=== PATIENT | male | born 1970 | race Caucasian/White ===

== ENCOUNTER 2023-01-24 18:21 | Inpatient (IN) ==
[2023-01-24] MEDS ORDERED: LORazepam 2 MG/1 ML VIAL IV STA ×2 (18:48→19:19)
[2023-01-24] MEDS ORDERED: SODIUM CHLORIDE 0.9% 1000ML 1,000 ML IV ONE (18:48)
[2023-01-24] MEDS ORDERED: dilTIAZem HCl 5 MG/ML 5 ML VIAL IV STA ×2 (19:08→19:19)
[2023-01-24 19:09] LABS: Basophils # (auto) 0.09 K/uL (0-0.2); Basophils % (auto) 0.7 %; Eosinophils # (auto) 0.28 K/uL (0-0.50); Eosinophils % (auto) 2.3 %; Hemoglobin 16.9 g/dl (14.0-18.0); Immature Granulocytes # (auto) 0.12 K/uL (0.01-0.20); Lymphocytes # (auto) 1.68 K/uL (1.2-3.4); Lymphocytes % (auto) 13.9 %; Mean Corpuscular Hemoglobin 33.2 pg (25.0-34.0); Mean Corpuscular Hgb Conc 35.2 g/dL (32.0-36.0); Mean Corpuscular Volume 94.3 fL (80.0-100.0); Monocytes # (auto) 1.33 K/uL (0.11-0.59); Neutrophils # (auto) 8.55 K/uL (1.40-6.50); Neutrophils % (auto) 71.1 %; Platelet Count 287 K/uL (130-400); RDW Coefficient of Variation 13.2 % (11.5-14.5); RDW Standard Deviation 45.2 fL (36.4-46.3); Red Blood Count 5.09 M/uL (4.70-6.10); White Blood Count 12.05 K/ul (4.8-10.8)
[2023-01-24] MEDS ORDERED: STAT IV Infusion **Titration per Protocol STA (19:22)
[2023-01-24 19:24] LABS: Alanine Aminotransferase 62 U/L (7-52); Albumin Level 4.3 gm/dl (3.4-5.0); Alkaline Phosphatase 86 U/L (34-104); Anion Gap 12 (3-11); Aspartate Aminotransferase 48 U/L (13-39); BUN Creatinine Ratio 14.4 (10-20); Bilirubin Direct 0.1 mg/dl (0-0.2); Bilirubin,Total 0.7 mg/dl (0.2-1.0); Blood Urea Nitrogen 14 mg/dl (6-23); Calcium 10.2 mg/dl (8.6-10.3); Carbon Dioxide 26 mmol/L (21-32); Chloride 96 mmol/L (98-107); Est GFR (African American) 103.6 ml/min; Est GFR (Non-African American) 89.4 ml/min; Glucose 99 mg/dl (70-99(Fasting)); Lipase 18 U/L (11-82); Magnesium 1.8 mg/dl (1.7-2.4); Potassium 3.5 mmol/L (3.5-5.1); Sodium 134 mmol/L (136-145); Total Protein 7.7 gm/dl (6.0-8.3)
[2023-01-24] MEDS ORDERED: METOPROLOL TARTRATE 1 MG/ML VIAL IV STA (19:29)
[2023-01-24 19:30] LABS: Troponin I High Sensitivity 34.7 pg/ml (0-20)
[2023-01-24 19:35] LABS: Prothrombin Time 10.8 Seconds (9.0-12.0)
--- NOTE | 2023-01-24 20:08 | CT Scan Report ---
HEAD CT NONCONTRAST CT DOSE: 703.85 mGy.cm HISTORY: dizziness TECHNIQUE: Multiaxial CT images of the head were performed without the use of intravenous contrast. A utomated exposure control was utilized for this study. A dose lowering technique was utilized adheri ng to the principles of ALARA. Comparison: None. Findings: Small retention cyst within the maxillary sinuses with mild mucosal thickening within the m axillary sinuses and ethmoid air cells. The mastoid air cells are clear. The calvarium and skull base are intact. The ventricles and sulci are within normal limits. There is no mass, hematoma, midline s hift, or acute infarct. Impression: No acute intracranial abnormality. ACT 112: Negative or not required by law. Electronically signed by: Iftikhar Ochoa M.D. 01/24/2023 8:06 PM
[2023-01-24] MEDS: dilTIAZem HCL 125 MG in DEXTROSE 5% 100 ML IV SCH (20:10)
--- NOTE | 2023-01-24 20:54 | XRay Report ---
XR chest 1V portable HISTORY: Atypical chest pain. COMPARISON: Chest 12/26/2015. FINDINGS: No pneumothorax. No pleural effusions. The lungs are clear. The cardiac silhouette is mildl y enlarged. No focal lung consolidations to suggest a pneumonia. No evidence for pulmonary edema. IMPRESSION: Mild cardiomegaly. Otherwise, no acute process within the chest. ACT 112: Negative or not required by law. Electronically signed by: Iftikhar Ochoa M.D. 01/24/2023 8:52 PM
--- NOTE | 2023-01-24 21:09 | History & Physical Report ---
Date of Service January 24, 2023 Assessment & Plan (1) Atrial flutter: Plan: 52yo male with a history of HTN, HLD, and alcohol use disorder presents with a three-day history of intermittent episodes of lightheadedness, sweating, back pain, headache, and SOB, found to be in atrial flutter on admission. Atrial flutter Patient with three-day history of intermittent episodes of lightheadedness, sweating, back pain, headache, and SOB Found to be in atrial flutter on admission with rates in the 130s Started on diltiazem gtt in ED BP stable; patient is without indication for cardioversion at this time Admit to PCU Echo ordered hsTroponin elevated to 34.7 - suspect demand ischemia - will trend per protocol - see below Holding home lisinopril/HCTZ Administered digoxin 250mcg IV (x1) Anticoagulation with heparin gtt for now; consider switching to DOAC in AM Electrolyte repletion to maintain K>4.0 and Mg>2.0 Elevated hsTroponin hsTroponin on admisison elevated to 34.7 Patient denies chest pain; no overt ischemic change on EKG Suspect secondary to demand ischemia Will trend per protocol Daily EKG, anticoagulation as above Alcohol use disorder AWSS protocol Banana bag, daily folate, thiamine Discuss possible naltrexone therapy prior to discharge HTN: hold home lisinopril/HCTZ, additional management noted above HLD: continue home crestor, hold home repatha Transaminitis: suspect hepatic steatosis 2/2 alcohol use disorder, no abdominal tenderness, no intervention indicated, trend CMP FEN: heart healthy diet, NSS@80mL/hr (x2 bags ordered) Code status: full code DVT ppx: heparin gtt Dispo: PCU (2) Alcohol use disorder: (3) Hypertension: (4) Hyperlipidemia: (5) Obesity: History of Present Illness Primary Care Provider: Srikanth Womack 52yo male with a history of HTN, HLD, and alcohol use disorder presents with a three-day history of intermittent episodes of lightheadedness, sweating, back pain, headache, and SOB. - has had symptomatic episodes once per day today and each of the last two days - lightheadedness, sweating, pain between shoulderblades, headache, SOB; symptoms worse with exertion; no over chest pain - each episode has spontaneously resolved after about an hour - no history of similar symptoms - feels "great' at the moment - reports drinking 15-20 beers daily, though after his symptomatic episode Friday (two days ago) only had three beers; had three yesterday and two today Patient denies fever, chills, vision changes, CP, abdominal pain, nausea, vomiting, dysuria, hematochezia, melena, numbness, or other symptoms. Denies recent illness and recent travel. Upon arrival, vitals were notable for elevated BP (140s/90s) and tachcardia (130s); no tachypnea, patient afebrile, spO2 adequate on room air. Initial labs were notable for elevated WBC (12.05), elevated AST (48), elevated ALT (62), and elevated hsTroponin (34.7); no anemia, platelets wnl, no electrolyte abnormalities, creatinine not elevated, Tbili not elevated, covid PCR negative. In the ED, patient was started on a diltiazem drip. EKG: atrial flutter, no overt ischemic change Imaging: CXR: mild cardiomegaly, no acute process CT head: no acute intracranial abnormality Surrogate decision-maker in case of an emergency: cammy Sofia (cell: [phone]) Allergies Allergy/AdvReac Type Severity Reaction Status Date / Time No Known Allergies Allergy Unverified 02/07/16 07:44 Home Medications Medication Instructions Recorded Confirmed Type evolocumab 420 mg/3.5 mL 420 mg subcut MONTHLY 01/24/23 01/24/23 History subcutaneous wearable injector (Repatha Pushtronex) lisinopril 20 1 tab PO DAILY 01/24/23 01/24/23 History mg-hydrochlorothiazide 25 mg tablet metoprolol succinate 25 mg 25 mg PO QPM 01/24/23 01/24/23 History tablet,extended release 24 hr rosuvastatin 40 mg tablet 40 mg PO QPM 01/24/23 01/24/23 History sertraline 50 mg tablet 50 mg PO QPM 01/24/23 01/24/23 History Past Med/Surg History Medical History (Updated 01/26/23 @ 13:28 by NORA Simmons) Alcohol use disorder Hyperlipidemia Hypertension No pertinent family history Surgical History No pertinent past surgical history Social History Smoking Status: Never smoker Second Hand Exposure: No; Do You Dip or Chew Tobacco: Yes; Hx Alcohol Use: Yes Alcohol type: beer Hx Substance Use: No Preferred Language: Maori Communication Ability: Effective Recruitment Advertising Manager Required: No Beliefs That Will Affect Care: None Current Living Situation: Spouse Other Information That Helps Us Care for You: No Feels Safe at Home: Yes Safety Concerns: Feels Safe At This Time Assistive Devices: Glasses Review of Systems Review of Systems: See HPI Physical Exam Physical Exam: Constitutional: well-appearing, no acute distress CV: tachycardic, rhythm regular, no murmur appreciated Resp: CTABL, no wheezes/rales/rhonchi appreciated, no increased work of breathing GI: soft, nontender MSK: no calf tenderness Skin: warm, dry, no rash appreciated Neuro: alert, oriented, no focal neurologic deficit appreciated Results & Data Results & Data Vital Signs (Past 12 Hours) Vital Signs Temp Pulse Pulse Resp BP BP Pulse Ox 01/24/23 20:30 135 H 18 111/82 92 01/24/23 19:32 135 H 103/72 01/24/23 18:55 140 H 01/24/23 18:51 96 01/24/23 18:25 36.6 C 139 H 24 147/93 H 93 O2 Del Method 01/24/23 20:30 Room Air 01/24/23 19:32 01/24/23 18:55 01/24/23 18:51 Room Air 01/24/23 18:25 Room Air Supervising Physician Co-Signing Physician Notes Attending addendum: I have physically seen this patient, have supervised the medical residents activities, and agree with the H&P unless as otherwise noted. Assessment and Plan: Atrial flutter/elevated troponin//hypertension- The patient will be admitted to telemetry for serial cardiac enzymes, serial EKG's, cardiac rhythm monitoring and a 2-D echocardiogram with Dopplers. Hold lisinopril/HCTZ Received diltiazem 20 mg IV push then 25 mg IV push from the ED with starting of diltiazem drip, which will be continued for now Outpatient on metoprolol succinate 25 mg every afternoon, we will continue for now Systolic blood pressure in the mid 90s, with heart rate in the 130s, will give digoxin 0.25 mg IV now and repeat in 3 hours if needed Start heparin drip Consult cardiology Alcohol abuse- AWSS protocol including thiamine, folate and Nephrocaps Discussed with patient direct toxic effect and indirect effect of alcohol affecting his heart function Hyperlipidemia- Continue Crestor On Repatha as outpatient Remaining orders and notations as noted Resident Activity Tracking Resident Involvement: Resident Care Provided Care Provided: Adult Hospital Medicine
[2023-01-24] MEDS ORDERED: MAGNESIUM OXIDE 400 MG TAB PO STA (21:35)
[2023-01-24] MEDS ORDERED: POTASSIUM CHLORIDE CRTAB 20 MEQ TABCR PO STA (21:35)
[2023-01-24] MEDS ORDERED: LORazepam 2 MG/1 ML VIAL IV PRN (21:36)
[2023-01-24] MEDS ORDERED: CEROVITE ADV FORMULA TAB PO STA (21:36)
[2023-01-24] MEDS ORDERED: ENOXAPARIN INJ 40 MG/0.4 ML SYR SQ SCH (21:45)
[2023-01-24] MEDS ORDERED: THIAMINE HCL 100 MG, FOLIC ACID 1 MG in SODIUM CHLORIDE 0.9% 1000ML 1,000 ML IV SCH (21:45)
[2023-01-24] MEDS: SODIUM CHLORIDE 0.9% 1000ML 1,000 ML IV SCH (22:14)
[2023-01-24] MEDS ORDERED: DIGOXIN 250 MCG in SYRINGE 9 ML IV ONE (22:15)
[2023-01-24] MEDS ORDERED: ENOXAPARIN 1 MG/KG SQ SCH (22:15)
[2023-01-24] MEDS ORDERED: Patient's HEIGHT &/or WEIGHT Needed STA (22:23)
--- NOTE | 2023-01-24 22:54 | Emergency Department Note ---
History of Present Illness General Chief complaint: Cardiac Assessment Stated complaint: NEAR SYNCOPE,REF BY DOC,HEART ISSUES,BLOCKED ATERY Time Seen by Provider: 01/24/23 18:34 History of Present Illness Provider complaint: Dizziness Onset (ago): day(s) 2 Maximum Pain Intensity: 2 52-year-old male presents emergency department for dizziness. Patient reports that for the last 2 days he has felt very dizzy like he is going to pass out. Patient denies any headache. No chest pain or difficulty breathing. No abdominal pain. No nausea vomiting or diarrhea. Patient does report he drinks 15-20 beers a day however the last 2 days he has only been drinking 3 beers a day. No falls. Home Medications Medication Instructions Recorded Confirmed Type evolocumab 420 mg/3.5 mL 420 mg subcut MONTHLY 01/24/23 01/24/23 History subcutaneous wearable injector (Repatha Pushtronex) lisinopril 20 1 tab PO DAILY 01/24/23 01/24/23 History mg-hydrochlorothiazide 25 mg tablet metoprolol succinate 25 mg 25 mg PO QPM 01/24/23 01/24/23 History tablet,extended release 24 hr rosuvastatin 40 mg tablet 40 mg PO QPM 01/24/23 01/24/23 History sertraline 50 mg tablet 50 mg PO QPM 01/24/23 01/24/23 History Allergies Allergy/AdvReac Type Severity Reaction Status Date / Time No Known Allergies Allergy Unverified 02/07/16 07:44 Past Med/Surg History Medical History Alcohol use disorder Hyperlipidemia Hypertension No pertinent family history Surgical History No pertinent past surgical history Social History Smoking Status: Never smoker Preferred Language: Moroccan Feels Safe at Home: Yes Physical Exam Vital Signs Vital Signs - 24 hr 01/24/23 18:25 01/24/23 18:51 01/24/23 18:55 Temperature 36.6 C Temperature Source Temporal Artery Scan Pulse Rate 139 H 140 H Pulse Rate [Apical] Pulse Rhythm [Apical] Respiratory Rate 24 Respiratory Effort / Characteristics Non-Labored Spontaneous Respiratory Depth Normal Respiratory Pattern Regular Blood Pressure 147/93 H Blood Pressure [Right Arm] Blood Pressure Mean 111 Blood Pressure Mean [Right Arm] Blood Pressure Position Sitting Blood Pressure Position [Right Arm] Pulse Oximetry 93 96 Oxygen Delivery Method Room Air Room Air Sepsis Recent Fever Within 48 Hours No Sepsis New/Unexplained Change in Mental Status N/A Sepsis Action Taken by Nursing No Action Required 01/24/23 19:32 01/24/23 20:30 01/24/23 21:11 Temperature Temperature Source Pulse Rate 135 H Pulse Rate [Apical] 135 H 134 H Pulse Rhythm [Apical] Regular Respiratory Rate 18 18 Respiratory Effort / Characteristics Non-Labored Spontaneous Non-Labored Spontaneous Respiratory Depth Normal Normal Respiratory Pattern Regular Regular Blood Pressure 103/72 Blood Pressure [Right Arm] 111/82 106/71 Blood Pressure Mean Blood Pressure Mean [Right Arm] 91 82 Blood Pressure Position Blood Pressure Position [Right Arm] Lying Lying Pulse Oximetry 92 95 Oxygen Delivery Method Room Air Room Air Sepsis Recent Fever Within 48 Hours Sepsis New/Unexplained Change in Mental Status Sepsis Action Taken by Nursing 01/24/23 22:51 Temperature Temperature Source Pulse Rate 134 H Pulse Rate [Apical] Pulse Rhythm [Apical] Respiratory Rate Respiratory Effort / Characteristics Respiratory Depth Respiratory Pattern Blood Pressure Blood Pressure [Right Arm] Blood Pressure Mean Blood Pressure Mean [Right Arm] Blood Pressure Position Blood Pressure Position [Right Arm] Pulse Oximetry Oxygen Delivery Method Sepsis Recent Fever Within 48 Hours Sepsis New/Unexplained Change in Mental Status Sepsis Action Taken by Nursing Physical Exam HENT: Exam performed. - Head: Normocephalic and atraumatic. - Right Ear: External ear normal. No mastoid erythema - Left Ear: External ear normal. No mastoid erythema EYES: Conjunctivae and EOM are normal. Right eye exhibits no discharge. Left eye exhibits no discharge. No scleral icterus. NECK: Normal range of motion. Neck supple. No JVD present. No spinous process tenderness present. No tracheal deviation and normal range of motion present. CV: Tachycardic rate, irregular rhythm, normal heart sounds and intact distal pulses. There is no peripheral edema. Palpable radial pulses bue. PULM/CHEST: Effort normal and breath sounds normal. No respiratory distress. No stridor. He has no wheezes. He has no rales. ABD: The abdomen is soft.There is no tenderness. There is no rebound, no guarding. NEURO: He is alert and oriented to person, place, and time. He has normal strength. No cranial nerve deficit or sensory deficit. Coordination and gait normal. GCS eye subscore is 4. GCS verbal subscore is 5. GCS motor subscore is 6. Cerebellar tests wnl. SKIN: Skin is warm and dry. He is not diaphoretic. PSYCH: He has a normal mood and affect. Behavior is normal. Judgment and thought content normal. Course Course 1833: The patient was evaluated in room B12B. A complete history and physical exam was performed Cardiac monitoring: An order was placed for continuous cardiac monitoring. The monitor shows a rate of atrial flutter with 135 rhythm interpreted by me Patient found to be in atrial flutter with a rate in the 130s. Large-bore IV access was obtained. Patient was given Cardizem 20 mg IV push which did not improve his heart rate. Ativan also ordered for the patient as well as IV fluids. Additional Cardizem 25 mg was ordered for the patient and again did not make any difference for patient's heart rate. An additional 2 mg of Ativan was ordered for the patient did not make any difference on the patient's heart rate. Patient's blood pressure remained stable metoprolol 5 mg IV push was ordered for the patient which did not improve the patient's heart rate. It is thought that the patient might be in holiday heart and the patient's heart rate may be due to his sudden cessation of alcohol usage. Patient will be started on Cardizem drip. 1943: Spoke with cardiology Dr. Escobedo collections associate [facility]. He agrees that the patient should be started on Cardizem drip. He advises against amiodarone at this time. He states his lungs patient's blood pressure is stable and as long as he is mentating well being keep the patient on the Cardizem drip. He states he will evaluate the patient and we will plan on admitting the patient for most likely atrial flutter secondary to alcohol withdrawal. 2049: Patient remains in atrial flutter with a rate in the 130s. He is alert and oriented x3 reporting no chest pain or difficulty breathing. Labs and imaging within normal limits. Patient will be admitted to the [facility] team Dr. Dukes notified. Administered Medications Diltiazem HCl 125 mg/ Dextrose 125 mls @ 15 mls/hr IV .[id number] [facility]; Protocol Stop: 02/23/23 19:29 Last Titration: 01/24/23 20:55 Dose: 15 mg/hr, 15 mls/hr Documented By: JENNIFER Co-signed By: CHELY Titration: 01/24/23 20:32 Dose: 10 mg/hr, 10 mls/hr Documented By: JENNIFER Co-signed By: regional intermodal truck driver: 01/24/23 20:10 Dose: 5 mg/hr, 5 mls/hr Documented By: JENNIFER Co-signed By: ALESSIO Thiamine HCl 100 mg/ Folic (Acid 1 mg/ Sodium Chloride) 1,001.2 mls @ 500 mls/hr IV .Q2H1M NIKKY; Protocol Stop: 01/24/23 23:45 Last Admin: 01/24/23 22:14 Dose: 500 mls/hr Documented By: JENNIFER Sodium Chloride (Nss 1000ml) 1,000 mls @ 80 mls/hr IV .[id number] NIKKY Stop: 01/25/23 22:44 Last Admin: 01/24/23 22:14 Dose: 80 mls/hr Documented By: JENNIFER Discontinued Medications Diltiazem HCl (Diltiazem Hcl 5 Mg/Ml 5 Ml Vial) 20 mg IV NOW STA Stop: 01/24/23 19:09 Last Admin: 01/24/23 19:12 Dose: 20 mg Documented By: JENNIFER Co-signed By: KAYLI Diltiazem HCl (Diltiazem Hcl 5 Mg/Ml 5 Ml Vial) 25 mg IV NOW STA Stop: 01/24/23 19:20 Last Admin: 01/24/23 19:25 Dose: 25 mg Documented By: JENNIFER Co-signed By: CHELY Sodium Chloride (Nss 1000ml) 1,000 mls @ 999 mls/hr IV .Q1H1M ONE Stop: 01/24/23 19:48 Last Infusion: 01/24/23 22:29 Dose: 0 mls/hr Documented By: Admin: 01/24/23 18:55 Dose: 999 mls/hr Documented By: APURVA Lorazepam (Lorazepam 2 Mg/1 Ml Vial) 1 mg IV NOW STA Stop: 01/24/23 18:49 Last Admin: 01/24/23 18:53 Dose: 1 mg Documented By: APURVA Lorazepam (Lorazepam 2 Mg/1 Ml Vial) 2 mg IV NOW STA Stop: 01/24/23 19:20 Last Admin: 01/24/23 19:26 Dose: 2 mg Documented By: JENNIFER Magnesium Oxide (Magnesium Oxide 400 Mg Tab) 400 mg PO NOW STA Stop: 01/24/23 21:36 Last Admin: 01/24/23 22:14 Dose: 400 mg Documented By: JENNIFER Metoprolol Tartrate (Metoprolol Tartrate 1 Mg/Ml Vial) 5 mg IV NOW STA Stop: 01/24/23 19:30 Last Admin: 01/24/23 19:32 Dose: 5 mg Documented By: JENNIFER Miscellaneous (Stat Iv Infusion Titration Per Protocol) 1 each N/A NOW STA Stop: 01/24/23 19:23 Last Admin: 01/24/23 20:33 Dose: Not Given Documented By: JENNIFER Multivitamins/Minerals (Cerovite Adv Formula Tab) 1 tab PO ONE STA Stop: 01/24/23 21:37 Last Admin: 01/24/23 22:13 Dose: 1 tab Documented By: JENNIFER Potassium Chloride (Potassium Chloride Crtab 20 Meq Tabcr) 40 meq PO NOW STA Stop: 01/24/23 21:36 Last Admin: 01/24/23 22:13 Dose: 40 meq Documented By: JENNIFER Critical Care Time Critical Care Time: Yes Total Critical Care Time: 60 I have personally spent greater than 60 minutes of critical care time in the direct management of this patient. This includes bedside care, interpretation of diagnostic studies, and testing, discussion with consultants, patient, and family members, and other required patient management activities. This 60 minutes is in excess of all separately billable procedures. Medical Decision Making Laboratory Data Attestation: I reviewed the patient's lab results. 01/24/23 18:50 01/24/23 18:50 Lab Results 01/24/23 01/24/23 01/24/23 Range/Units 18:50 18:50 18:50 WBC 12.05 H (4.8-10.8) K/ul RBC 5.09 (4.70-6.10) M/uL Hgb 16.9 (14.0-18.0) g/dl Hct 48.0 (42.0-52.0) % MCV 94.3 (80.0-100.0) fL MCH 33.2 (25.0-34.0) pg MCHC 35.2 (32.0-36.0) g/dL RDW Std Deviation 45.2 (36.4-46.3) fL RDW Coeff of Anselmo 13.2 (11.5-14.5) % Plt Count 287 (130-400) K/uL MPV 11.0 (9.4-12.4) fL Immature Gran % (Auto) 1.0 % Neut % (Auto) 71.1 % Lymph % (Auto) 13.9 % Archer % (Auto) 11.0 % Eos % (Auto) 2.3 % Baso % (Auto) 0.7 % Neut # (Auto) 8.55 H (1.40-6.50) K/uL Lymph # (Auto) 1.68 (1.2-3.4) K/uL Archer # (Auto) 1.33 H (0.11-0.59) K/uL Eos # (Auto) 0.28 (0-0.50) K/uL Baso # (Auto) 0.09 (0-0.2) K/uL Immature Gran # (Auto) 0.12 (0.01-0.20) K/uL PT 10.8 (9.0-12.0) Seconds INR 1.0 (0.9-1.1) APTT 28.0 (21.0-31.0) Seconds PTT Ratio 1.0 Sodium 134 L (136-145) mmol/L Potassium 3.5 (3.5-5.1) mmol/L Chloride 96 L (98-107) mmol/L Carbon Dioxide 26 (21-32) mmol/L Anion Gap 12 H (3-11) BUN 14 (6-23) mg/dl Creatinine 0.97 (0.6-1.4) mg/dl Est Cr Clr Drug Dosing Not Reportable Est GFR ( Amer) 103.6 ml/min Est GFR (Non-Af Amer) 89.4 ml/min BUN/Creatinine Ratio 14.4 (10-20) Glucose 99 (70-99(Fasting)) mg/dl Calcium 10.2 (8.6-10.3) mg/dl Magnesium 1.8 (1.7-2.4) mg/dl Total Bilirubin 0.7 (0.2-1.0) mg/dl Direct Bilirubin 0.1 (0-0.2) mg/dl AST 48 H (13-39) U/L ALT 62 H (7-52) U/L Alkaline Phosphatase 86 (34-104) U/L Troponin I High Sens 34.7 H (0-20) pg/ml Total Protein 7.7 (6.0-8.3) gm/dl Albumin 4.3 (3.4-5.0) gm/dl Lipase 18 (11-82) U/L SARS-CoV-2, RNA, NAAT (NEGATIVE) 01/24/23 Range/Units 21:36 WBC (4.8-10.8) K/ul RBC (4.70-6.10) M/uL Hgb (14.0-18.0) g/dl Hct (42.0-52.0) % MCV (80.0-100.0) fL MCH (25.0-34.0) pg MCHC (32.0-36.0) g/dL RDW Std Deviation (36.4-46.3) fL RDW Coeff of Anselmo (11.5-14.5) % Plt Count (130-400) K/uL MPV (9.4-12.4) fL Immature Gran % (Auto) % Neut % (Auto) % Lymph % (Auto) % Archer % (Auto) % Eos % (Auto) % Baso % (Auto) % Neut # (Auto) (1.40-6.50) K/uL Lymph # (Auto) (1.2-3.4) K/uL Archer # (Auto) (0.11-0.59) K/uL Eos # (Auto) (0-0.50) K/uL Baso # (Auto) (0-0.2) K/uL Immature Gran # (Auto) (0.01-0.20) K/uL PT (9.0-12.0) Seconds INR (0.9-1.1) APTT (21.0-31.0) Seconds PTT Ratio Sodium (136-145) mmol/L Potassium (3.5-5.1) mmol/L Chloride (98-107) mmol/L Carbon Dioxide (21-32) mmol/L Anion Gap (3-11) BUN (6-23) mg/dl Creatinine (0.6-1.4) mg/dl Est Cr Clr Drug Dosing Est GFR ( Amer) ml/min Est GFR (Non-Af Amer) ml/min BUN/Creatinine Ratio (10-20) Glucose (70-99(Fasting)) mg/dl Calcium (8.6-10.3) mg/dl Magnesium (1.7-2.4) mg/dl Total Bilirubin (0.2-1.0) mg/dl Direct Bilirubin (0-0.2) mg/dl AST (13-39) U/L ALT (7-52) U/L Alkaline Phosphatase (34-104) U/L Troponin I High Sens (0-20) pg/ml Total Protein (6.0-8.3) gm/dl Albumin (3.4-5.0) gm/dl Lipase (11-82) U/L SARS-CoV-2, RNA, NAAT NEGATIVE (NEGATIVE) Imaging Data Attestation: I personally reviewed and interpreted this imaging study as follows: My Impression: Chest x-ray negative. Airway clear. No pneumothorax. No consolidation. No cardiomegaly or cephalization.. No free air under the diaphragm. No fractures of the skeletal structures. Radiologist's Impression: Head CT 01/24/23 18:[address] CT DOSE: 703.85 mGy.cm HISTORY: dizziness TECHNIQUE: Multiaxial CT images of the head were performed without the use of intravenous contrast. Automated exposure control was utilized for this study. A dose lowering technique was utilized adhering to the principles of ALARA. Comparison: None. Findings: Small retention cyst within the maxillary sinuses with mild mucosal thickening within the maxillary sinuses and ethmoid air cells. The mastoid air cells are clear. The calvarium and skull base are intact. The ventricles and sulci are within normal limits. There is no mass, hematoma, midline shift, or acute infarct. Impression: No acute intracranial abnormality. ACT 112: Negative or not required by law. Electronically signed by: Iftikhar Ochoa M.D. 01/24/2023 8:06 PM Chest X-Ray 01/24/23 19:38 XR chest 1V portable HISTORY: Atypical chest pain. COMPARISON: Chest 12/26/2015. FINDINGS: No pneumothorax. No pleural effusions. The lungs are clear. The cardiac silhouette is mildly enlarged. No focal lung consolidations to suggest a pneumonia. No evidence for pulmonary edema. IMPRESSION: Mild cardiomegaly. Otherwise, no acute process within the chest. ACT 112: Negative or not required by law. Electronically signed by: Iftikhar Ochoa M.D. 01/24/2023 8:52 PM ECG Data Attestation: I personally reviewed and interpreted this ECG as follows: Additional Comments: EKG #1 at 1846: Atrial flutter with a rate of 138. QRS [address] elevation or ST depression. EKG #2 at 1907: Atrial flutter with a rate of 136. QRS [address] elevation or ST depression. EKG #3 at 1917 atrial flutter with rate of 135. QRS [address] elevation or ST depression. EKG #4 at 1936: Atrial flutter with rate of 134. QRS [address] elevation or ST depression. [facility] Narrative 183: The patient was evaluated in room B12B. A complete history and physical exam was performed Cardiac monitoring: An order was placed for continuous cardiac monitoring. The monitor shows a rate of atrial flutter with 135 rhythm interpreted by me Patient found to be in atrial flutter with a rate in the 130s. Large-bore IV access was obtained. Patient was given Cardizem 20 mg IV push which did not improve his heart rate. Ativan also ordered for the patient as well as IV fluids. Additional Cardizem 25 mg was ordered for the patient and again did not make any difference for patient's heart rate. An additional 2 mg of Ativan was ordered for the patient did not make any difference on the patient's heart rate. Patient's blood pressure remained stable metoprolol 5 mg IV push was ordered for the patient which did not improve the patient's heart rate. It is thought that the patient might be in holiday heart and the patient's heart rate may be due to his sudden cessation of alcohol usage. Patient will be started on Cardizem drip. 1943: Spoke with cardiology Dr. Escobedo collections associate [facility]. He agrees that the patient should be started on Cardizem drip. He advises against amiodarone at this time. He states his lungs patient's blood pressure is stable and as long as he is mentating well being keep the patient on the Cardizem drip. He states he will evaluate the patient and we will plan on admitting the patient for most likely atrial flutter secondary to alcohol withdrawal. 2049: Patient remains in atrial flutter with a rate in the 130s. He is alert and oriented x3 reporting no chest pain or difficulty breathing. Labs and imaging within normal limits. Patient will be admitted to the [facility] team Dr. Dukes notified. Impression & Plan Atrial flutter, Alcohol abuse Discharge Plan Visit Data Chief Complaint: Cardiac Assessment Stated Complaint: NEAR SYNCOPE,REF BY DOC,HEART ISSUES,BLOCKED ATERY ED Provider: Indra Palm Discharge Problem: Atrial flutter, Alcohol abuse Patient Disposition: Admitted As Inpatient Forms Stand Alone Forms: My [facility] Prescriptions Prescriptions: No Action lisinopril-hydrochlorothiazide 20-25 mg tablet 1 tab PO DAILY metoprolol succinate 25 mg tablet extended release 24 hr 25 mg PO QPM sertraline 50 mg tablet 50 mg PO QPM rosuvastatin 40 mg tablet 40 mg PO QPM Repatha Pushtronex 420 mg/3.5 mL wearable injector 420 mg SUBCUT MONTHLY Referrals Referrals: Srikanth Womack [Primary Care Provider] -
[2023-01-25] MEDS: Heparin IV Adult Wt-Based Standard *NO* Bolus Protocol IV SCH ×2 (00:25→00:26)
[2023-01-25] MEDS: HEPARIN SODIUM/DEXTROSE 25,000 UNITS/500 ML BAG IV SCH ×2 (00:42→13:01)
[2023-01-25] MEDS: dilTIAZem HCL 125 MG in DEXTROSE 5% 100 ML IV SCH ×3 (04:12→20:45)
[2023-01-25 08:15] LABS: Albumin Globulin Ratio 1.4 (0.9-2); Albumin Level 3.7 gm/dl (3.4-5.0); BUN Creatinine Ratio 16.2 (10-20); Bilirubin,Total 0.7 mg/dl (0.2-1.0); Chol HDL Ratio 2.7 (0-5); Creatinine Clr Calc Pharmacy 205.9 ml/min; Est GFR (African American) 127.3 ml/min; Est GFR (Non-African American) 109.8 ml/min; Globulin 2.7 gm/dl (2.5-4.0); Magnesium 1.7 mg/dl (1.7-2.4); Phosphorus 3.7 mg/dl (2.5-4.9); Potassium 3.7 mmol/L (3.5-5.1); Total Protein 6.4 gm/dl (6.0-8.3)
[2023-01-25] MEDS ORDERED: MAGNESIUM SULFATE / D5W 1 GM/100 ML BAG IV ONE (08:30)
[2023-01-25 08:31] LABS: Partial Thromboplastin Ratio 1.3; Partial Thromboplastin Time 36.8 Seconds (21.0-31.0)
[2023-01-25 08:43] LABS: Hematocrit (blood only) 40.2 % (42.0-52.0); Hemoglobin 14.1 g/dl (14.0-18.0); Mean Corpuscular Hemoglobin 33.3 pg (25.0-34.0); Mean Corpuscular Hgb Conc 35.1 g/dL (32.0-36.0); Mean Corpuscular Volume 94.8 fL (80.0-100.0); Mean Platelet Volume 11.4 fL (9.4-12.4); Platelet Count 218 K/uL (130-400); RDW Coefficient of Variation 13.6 % (11.5-14.5); RDW Standard Deviation 47.1 fL (36.4-46.3); Red Blood Count 4.24 M/uL (4.70-6.10); White Blood Count 7.17 K/ul (4.8-10.8)
[2023-01-25] MEDS ORDERED: LISINOPRIL/HCTZ 20/25MG 1 TAB PO SCH (09:00)
[2023-01-25] MEDS: POTASSIUM CHLORIDE CRTAB 20 MEQ TABCR PO SCH (09:24)
[2023-01-25] MEDS: THIAMINE HCL 100 MG TAB PO SCH (09:24)
[2023-01-25] MEDS: FOLIC ACID 1 MG TAB PO SCH (09:24)
[2023-01-25] MEDS: SODIUM CHLORIDE 0.9% 1000ML 1,000 ML IV SCH (09:24)
--- NOTE | 2023-01-25 11:33 | Hospitalist Progress Note ---
Date of Service January 25, 2023 Assessment & Plan (1) Atrial flutter: Plan: - Three day history of pre syncope, diaphoresis, headache prior to admission. - A flutter noted on admission, HR 130s. Has remained in the 120 to 130s overnight on telemetry. - Remains on Diltiazem drip at max dose. Also received Digoxin 250 mcg IV x 1 dose. - Continue home Metoprolol 25 mg qPM. - Heparin drip ordered, will eventually need transitioned to DOAC therapy prior to discharge. - BP stable, with exception of one reading overnight at 86/59. Continue to monitor. - ECHO completed, results pending. - Holding home anti-hypertensives. - Maintain Mag >2, K >4 - received Mag sulfate infusion this morning. KCl 20 mEq PO qAM ordered. - Consulting cardiology team today for further management. (2) Elevated troponin: Plan: - Initial reading 34.7, improved to 31.2. - No overt ischemic change on EKG - Daily EKG, continuous cardiac monitoring. (3) Alcohol use disorder: Plan: - AWSS protocol. - Received banana bag; daily folate and thiamine ordered. - Will discuss naltrexone at discharge. (4) Hypertension: Plan: - Holding home anti-hypertensives. - BP remains stable. (5) Hyperlipidemia: Plan: - Continue home crestor, hold home repatha (6) Transaminitis: Plan: - Suspect hepatic steatosis 2/2 alcohol use disorder. - Stable, WNL this morning. (7) Obesity: Plan: - BMI 46.2. FEN: Heart healthy diet. Code status: full code DVT ppx: heparin gtt, will eventually transition to DOAC therapy. Dispo: PCU; cardiology consulted for further management. Admission and Anticipated Discharge Date Admission Date: January 24, 2023 Subjective Mr. Sofia is a very pleasant 52 y/o male with newly diagnosed Atrial Flutter. HR remains in A. flutter on tele overnight, in the 120 to 130's. He has reached max dose on Diltiazem drip, with no improvement. He reports mild palpitations but is otherwise doing well. Review of Systems Review of Systems: Constitutional: Negative for weight loss, night sweats, or fever Eyes: Negative for event change of vision ENT: Negative for epistaxis, nasal discharge, sore throat, or deafness Cardiovascular: Palpitations;Negative for anginal type chest pain, dizziness, diaphoresis Respiratory: Negative for new shortness of breath,hemoptysis, or purulent cough Gastrointestinal: Negative for diarrhea, hematemesis, melena, nausea, vomiting, or dyspepsia Integumentary (skin): Negative for rash or jaundice discoloration Genitourinary: Negative for urinary frequency, hematuria, or dysuria Neurological: Negative for weakness, seizure activity, headache, or dizziness Lymphatic/Hematologic: Negative for petechiae, bleeding or new adenopathy Musculoskeletal: Negative for new joint or back pain Allergic/Immunologic: Negative for unusual rash or pruritis Physical Exam Physical Exam: Constitutional: Vitals are stable Respiratory: Lung sounds were generally clear bilaterally. Cardiovascular: Irregular; without significant murmur, gallops or rubs. Lymphatic system: There was no palpable peripheral lymphadenopathy. Musculoskeletal System: The musculoskeletal system seemed concordant with age. Skin: The skin was negative for jaundice. Extremities: Negative for edema or erythema Results & Data Results & Data Vital Signs (Past 12 Hours) Vital Signs Temp Pulse Pulse Resp BP Pulse Ox O2 Del Method 01/25/23 07:00 142 H 01/25/23 07:30 36.5 C 134 H 22 108/77 93 Room Air 01/25/23 03:55 36.6 C 136 H 18 119/67 93 Room Air 01/25/23 00:53 133 H 01/25/23 00:25 37.0 C 142 H 20 121/79 93 Room Air Laboratory Results 01/25/23 01/25/23 01/25/23 Range/Units 07:26 07:26 07:26 WBC 7.17 (4.8-10.8) K/ul RBC 4.24 L (4.70-6.10) M/uL Hgb 14.1 (14.0-18.0) g/dl Hct 40.2 L (42.0-52.0) % MCV 94.8 (80.0-100.0) fL MCH 33.3 (25.0-34.0) pg MCHC 35.1 (32.0-36.0) g/dL RDW Std Deviation 47.1 H (36.4-46.3) fL RDW Coeff of Anselmo 13.6 (11.5-14.5) % Plt Count 218 (130-400) K/uL MPV 11.4 (9.4-12.4) fL Immature Gran % (Auto) % Neut % (Auto) % Lymph % (Auto) % Cook % (Auto) % Eos % (Auto) % Baso % (Auto) % Neut # (Auto) (1.40-6.50) K/uL Lymph # (Auto) (1.2-3.4) K/uL Cook # (Auto) (0.11-0.59) K/uL Eos # (Auto) (0-0.50) K/uL Baso # (Auto) (0-0.2) K/uL Immature Gran # (Auto) (0.01-0.20) K/uL PT (9.0-12.0) Seconds INR (0.9-1.1) APTT 36.8 H (21.0-31.0) Seconds PTT Ratio 1.3 Sodium 138 (136-145) mmol/L Potassium 3.7 (3.5-5.1) mmol/L Chloride 105 (98-107) mmol/L Carbon Dioxide 25 (21-32) mmol/L Anion Gap 8 (3-11) BUN 11 (6-23) mg/dl Creatinine 0.68 (0.6-1.4) mg/dl Est Cr Clr Drug Dosing 205.9 Est GFR ( Amer) 127.3 ml/min Est GFR (Non-Af Amer) 109.8 ml/min BUN/Creatinine Ratio 16.2 (10-20) Glucose 105 H (70-99(Fasting)) mg/dl Calcium 9.0 (8.6-10.3) mg/dl Phosphorus 3.7 (2.5-4.9) mg/dl Magnesium 1.7 (1.7-2.4) mg/dl Total Bilirubin 0.7 (0.2-1.0) mg/dl Direct Bilirubin (0-0.2) mg/dl AST 37 (13-39) U/L ALT 46 (7-52) U/L Alkaline Phosphatase 61 (34-104) U/L Troponin I High Sens (0-20) pg/ml Total Protein 6.4 (6.0-8.3) gm/dl Albumin 3.7 (3.4-5.0) gm/dl Globulin 2.7 (2.5-4.0) gm/dl Albumin/Globulin Ratio 1.4 (0.9-2) Triglycerides 106 (0-150) mg/dl Cholesterol 122 (0-200) mg/dl LDL Cholesterol, Calc 55 mg/dl VLDL Cholesterol, Calc 21 (0-30) mg/dl HDL Cholesterol 46 mg/dl Cholesterol/HDL Ratio 2.7 (0-5) Lipase (11-82) U/L SARS-CoV-2, RNA, NAAT (NEGATIVE) 01/24/23 01/24/23 01/24/23 Range/Units 21:36 21:32 18:50 WBC (4.8-10.8) K/ul RBC (4.70-6.10) M/uL Hgb (14.0-18.0) g/dl Hct (42.0-52.0) % MCV (80.0-100.0) fL MCH (25.0-34.0) pg MCHC (32.0-36.0) g/dL RDW Std Deviation (36.4-46.3) fL RDW Coeff of Anselmo (11.5-14.5) % Plt Count (130-400) K/uL MPV (9.4-12.4) fL Immature Gran % (Auto) % Neut % (Auto) % Lymph % (Auto) % Cook % (Auto) % Eos % (Auto) % Baso % (Auto) % Neut # (Auto) (1.40-6.50) K/uL Lymph # (Auto) (1.2-3.4) K/uL Cook # (Auto) (0.11-0.59) K/uL Eos # (Auto) (0-0.50) K/uL Baso # (Auto) (0-0.2) K/uL Immature Gran # (Auto) (0.01-0.20) K/uL PT (9.0-12.0) Seconds INR (0.9-1.1) APTT (21.0-31.0) Seconds PTT Ratio Sodium 134 L (136-145) mmol/L Potassium 3.5 (3.5-5.1) mmol/L Chloride 96 L (98-107) mmol/L Carbon Dioxide 26 (21-32) mmol/L Anion Gap 12 H (3-11) BUN 14 (6-23) mg/dl Creatinine 0.97 (0.6-1.4) mg/dl Est Cr Clr Drug Dosing Not Reportable Est GFR ( Amer) 103.6 ml/min Est GFR (Non-Af Amer) 89.4 ml/min BUN/Creatinine Ratio 14.4 (10-20) Glucose 99 (70-99(Fasting)) mg/dl Calcium 10.2 (8.6-10.3) mg/dl Phosphorus (2.5-4.9) mg/dl Magnesium 1.8 (1.7-2.4) mg/dl Total Bilirubin 0.7 (0.2-1.0) mg/dl Direct Bilirubin 0.1 (0-0.2) mg/dl AST 48 H (13-39) U/L ALT 62 H (7-52) U/L Alkaline Phosphatase 86 (34-104) U/L Troponin I High Sens 31.2 H 34.7 H (0-20) pg/ml Total Protein 7.7 (6.0-8.3) gm/dl Albumin 4.3 (3.4-5.0) gm/dl Globulin (2.5-4.0) gm/dl Albumin/Globulin Ratio (0.9-2) Triglycerides (0-150) mg/dl Cholesterol (0-200) mg/dl LDL Cholesterol, Calc mg/dl VLDL Cholesterol, Calc (0-30) mg/dl HDL Cholesterol mg/dl Cholesterol/HDL Ratio (0-5) Lipase 18 (11-82) U/L SARS-CoV-2, RNA, NAAT NEGATIVE (NEGATIVE) 01/24/23 01/24/23 Range/Units 18:50 18:50 WBC 12.05 H (4.8-10.8) K/ul RBC 5.09 (4.70-6.10) M/uL Hgb 16.9 (14.0-18.0) g/dl Hct 48.0 (42.0-52.0) % MCV 94.3 (80.0-100.0) fL MCH 33.2 (25.0-34.0) pg MCHC 35.2 (32.0-36.0) g/dL RDW Std Deviation 45.2 (36.4-46.3) fL RDW Coeff of Anselmo 13.2 (11.5-14.5) % Plt Count 287 (130-400) K/uL MPV 11.0 (9.4-12.4) fL Immature Gran % (Auto) 1.0 % Neut % (Auto) 71.1 % Lymph % (Auto) 13.9 % Cook % (Auto) 11.0 % Eos % (Auto) 2.3 % Baso % (Auto) 0.7 % Neut # (Auto) 8.55 H (1.40-6.50) K/uL Lymph # (Auto) 1.68 (1.2-3.4) K/uL Cook # (Auto) 1.33 H (0.11-0.59) K/uL Eos # (Auto) 0.28 (0-0.50) K/uL Baso # (Auto) 0.09 (0-0.2) K/uL Immature Gran # (Auto) 0.12 (0.01-0.20) K/uL PT 10.8 (9.0-12.0) Seconds INR 1.0 (0.9-1.1) APTT 28.0 (21.0-31.0) Seconds PTT Ratio 1.0 Sodium (136-145) mmol/L Potassium (3.5-5.1) mmol/L Chloride (98-107) mmol/L Carbon Dioxide (21-32) mmol/L Anion Gap (3-11) BUN (6-23) mg/dl Creatinine (0.6-1.4) mg/dl Est Cr Clr Drug Dosing Est GFR ( Amer) ml/min Est GFR (Non-Af Amer) ml/min BUN/Creatinine Ratio (10-20) Glucose (70-99(Fasting)) mg/dl Calcium (8.6-10.3) mg/dl Phosphorus (2.5-4.9) mg/dl Magnesium (1.7-2.4) mg/dl Total Bilirubin (0.2-1.0) mg/dl Direct Bilirubin (0-0.2) mg/dl AST (13-39) U/L ALT (7-52) U/L Alkaline Phosphatase (34-104) U/L Troponin I High Sens (0-20) pg/ml Total Protein (6.0-8.3) gm/dl Albumin (3.4-5.0) gm/dl Globulin (2.5-4.0) gm/dl Albumin/Globulin Ratio (0.9-2) Triglycerides (0-150) mg/dl Cholesterol (0-200) mg/dl LDL Cholesterol, Calc mg/dl VLDL Cholesterol, Calc (0-30) mg/dl HDL Cholesterol mg/dl Cholesterol/HDL Ratio (0-5) Lipase (11-82) U/L SARS-CoV-2, RNA, NAAT (NEGATIVE) PG Care Time/CCT Total # of Minutes Spent Total Time Spent with Patient: Total time spent is greater than 50% in coordination of care (as documented) at patient's floor/unit and/or counseling patient: Coding [place] [address] SUB INP/OBS CARE 2/35MIN Patient Type Established Diagnoses Atrial flutter I48.92 Elevated troponin R77.8 Alcohol use disorder F10.90 Hypertension I10 Hyperlipidemia E78.5 Transaminitis R74.01 Obesity E66.9
--- NOTE | 2023-01-25 14:02 | Cardiology Consultation ---
Date of Consultation January 25, 2023 Assessment & Plan (1) Atrial flutter: (2) Elevated troponin: Plan 1. Atrial flutter: He remains in atrial flutter with a heart rate which remains elevated. Ideally we would try to convert his rhythm back to normal, I am very concerned about doing this with the duration of the atrial arrhythmia that he had based on symptoms (several days before receiving anticoagulation) I do not think it is safe to perform cardioversion (either chemically or electrically) without a negative INGE. We can consider INGE guided cardioversion on Friday. If we can control his heart rate we could hold off and do this in the future but with slow atrial flutter heart rate control can sometimes be very difficult. 2. Anticoagulation: Although his [id number] score is not elevated we should start anticoagulation so that we can safely perform cardioversion. Whether he will need anticoagulation over the long run or not is not clear. 3. Elevated troponin: His troponin is minimally elevated, not increasing over several hours in the emergency room, and I believe is well within the range 1 would expect with a tachycardia at this rate. I would not pursue further. History of Present Illness Reason for Consultation: Atrial flutter with rapid ventricular response Attending Physician: Toño Cordero MD History of Present Illness This is a 52-year-old male with a history of hypertension, hyperlipidemia but no prior cardiac arrhythmias to my knowledge. He had several days of feeling dizzy and presyncopal, but no chest pain or shortness of breath. In the emergency room he was observed to be in atrial flutter with 2-1 AV conduction and a heart rate of 138 bpm. Although not easy to determine accurately due to the prominent flutter waves there does not seem to be acute ST segment deviations. 2 high-sensitivity troponins were done several hours apart in the emergency room and they were minimally elevated (34.7 and subsequently 31.2) probably consistent with demand ischemia not acute coronary issues. A chest x-ray done in the emergency room was unremarkable other than possible cardiomegaly. His heart rate was difficult to control with standard therapy in the emergency room and he was admitted and placed on a heparin drip. He was also placed on a heparin drip and is on metoprolol succinate 25 mg daily as well as digoxin x1 dose in the emergency room. His heart rate has not been well controlled however he has been feeling relatively well and for the most part is unaware of his rhythm. I did discuss his symptoms on presentation and he confirms that he became aware of his symptoms about 2 to 3 days prior to presentation and is fairly confident that he did not have symptoms before that. The symptoms were intermittent and he thought he was going in and out of the arrhythmia, although I suspect he was just not aware of it at all times. He felt weak and fatigued but did not have exertional chest discomfort and he has not had shortness of breath. Allergies Allergy/AdvReac Type Severity Reaction Status Date / Time No Known Allergies Allergy Unverified 02/07/16 07:44 Home Medications Medication Instructions Recorded Confirmed Type evolocumab 420 mg/3.5 mL 420 mg subcut MONTHLY 01/24/23 01/24/23 History subcutaneous wearable injector (Repatha Pushtronex) lisinopril 20 1 tab PO DAILY 01/24/23 01/24/23 History mg-hydrochlorothiazide 25 mg tablet metoprolol succinate 25 mg 25 mg PO QPM 01/24/23 01/24/23 History tablet,extended release 24 hr rosuvastatin 40 mg tablet 40 mg PO QPM 01/24/23 01/24/23 History sertraline 50 mg tablet 50 mg PO QPM 01/24/23 01/24/23 History Patient History Medical History Alcohol use disorder Hyperlipidemia Hypertension No pertinent family history Surgical History No pertinent past surgical history Social History Smoking Status: Never smoker Second Hand Exposure: No; Do You Dip or Chew Tobacco: Yes; Hx Alcohol Use: Yes Alcohol type: beer Hx Substance Use: No Preferred Language: Persian Communication Ability: Effective Biology Intern Required: No Beliefs That Will Affect Care: None Current Living Situation: Spouse Other Information That Helps Us Care for You: No Feels Safe at Home: Yes Safety Concerns: Feels Safe At This Time Assistive Devices: Glasses Physical Exam Physical Exam: Constitutional: Alert, cooperative and in no distress. He is obese. HEENT: Unremarkable Neck: No jugular venous distention, carotid pulses are irregular but otherwise normal and equal bilaterally without bruits. Pulmonary: Clear to auscultation bilaterally. Cardiac: Irregular rhythm with no murmur, gallop or rub. Abdomen: Soft, nontender with normal bowel sounds. Extremities: No edema. Distal pulses intact. Neurologic: No focal findings. Gait was not tested. Skin: No rash, ecchymoses or petechiae. Results & Data Vital Signs (Past 12 Hours) Vital Signs Temp Pulse Pulse Resp BP Pulse Ox O2 Del Method 01/25/23 11:21 36.5 C 113 H 18 108/68 94 Room Air 01/25/23 07:00 142 H 01/25/23 07:30 36.5 C 134 H 22 108/77 93 Room Air 01/25/23 03:55 36.6 C 136 H 18 119/67 93 Room Air Laboratory Results Cardiac Enzymes 01/24/23 01/24/23 01/25/23 Range/Units 18:50 21:32 07:26 AST 48 H 37 (13-39) U/L Troponin I High Sens 34.7 H 31.2 H (0-20) pg/ml Coagulation 01/24/23 01/25/23 Range/Units 18:50 07:26 PT 10.8 (9.0-12.0) Seconds APTT 28.0 36.8 H (21.0-31.0) Seconds Lipids 01/25/23 Range/Units 07:26 Triglycerides 106 (0-150) mg/dl Cholesterol 122 (0-200) mg/dl HDL Cholesterol 46 mg/dl Cholesterol/HDL Ratio 2.7 (0-5) CBC 01/24/23 01/25/23 Range/Units 18:50 07:26 WBC 12.05 H 7.17 (4.8-10.8) K/ul RBC 5.09 4.24 L (4.70-6.10) M/uL Hgb 16.9 14.1 (14.0-18.0) g/dl Hct 48.0 40.2 L (42.0-52.0) % Plt Count 287 218 (130-400) K/uL Neut # (Auto) 8.55 H (1.40-6.50) K/uL Lymph # (Auto) 1.68 (1.2-3.4) K/uL Dane # (Auto) 1.33 H (0.11-0.59) K/uL Eos # (Auto) 0.28 (0-0.50) K/uL Baso # (Auto) 0.09 (0-0.2) K/uL Comprehensive Metabolic Panel 01/24/23 01/25/23 Range/Units 18:50 07:26 Sodium 134 L 138 (136-145) mmol/L Potassium 3.5 3.7 (3.5-5.1) mmol/L Chloride 96 L 105 (98-107) mmol/L Carbon Dioxide 26 25 (21-32) mmol/L BUN 14 11 (6-23) mg/dl Creatinine 0.97 0.68 (0.6-1.4) mg/dl Glucose 99 105 H (70-99(Fasting)) mg/dl Calcium 10.2 9.0 (8.6-10.3) mg/dl Direct Bilirubin 0.1 (0-0.2) mg/dl AST 48 H 37 (13-39) U/L ALT 62 H 46 (7-52) U/L Alkaline Phosphatase 86 61 (34-104) U/L Total Protein 7.7 6.4 (6.0-8.3) gm/dl Albumin 4.3 3.7 (3.4-5.0) gm/dl Intake and Output 01/24/23 01/25/23 01/25/23 22:59 06:59 14:59 Intake Total 1005.666 / 2409.883 1404.217 / 2409.883 1310.066 / 1310.066 Balance 1005.666 / 2409.883 1404.217 / 2409.883 1310.066 / 1310.066 Intake: IV 1005.666 / 2409.883 1404.217 / 2409.883 1310.066 / 1310.066 Heparin Sodium/Dextrose 25,000 253.517 / 253.517 246.483 / 246.483 units In 500 ml @ 2,050 UNITS/ HR 41 mls/hr IV .[id number] [facility] Rx #:[id number] Magnesium Sulfate / D5w 1 gm In 100 / 100 100 ml @ 50 mls/hr IV ONE ONE Rx#:[id number] Sodium Chloride 0.9% 1000ML 1, 1000 / 1000 893.333 / 893.333 000 ml @ 80 mls/hr IV .[id number] [facility] Rx#:[id number] Thiamine HCl 100 mg Folic Acid 1001.2 / 1001.2 1 mg In Sodium Chloride 0.9% 1000ML 1,000 ml @ 500 mls/hr IV .Q2H1M [facility] Rx#:[id number] dilTIAZem HCL 125 mg In 5.666 / 155.166 149.50 / 155.166 70.25 / 70.25 Dextrose 5% 100 ml @ 15 MG/HR 15 mls/hr IV .Q8H20M [facility] Rx#: [id number] Other: # Unmeasured Voids 1 Weight 161.3 kg 163.1 kg Weight Measurement Method Standing Scale Diagnostic Findings Telemetry: Atrial flutter with 2-1 and variable AV conduction, heart rate somewhat rapid generally although little better controlled this afternoon. An echocardiogram done January 25, 2023 demonstrates a normal left ventricular size with a left ventricular ejection fraction of 55 to 60%, mild concentric left ventricular hypertrophy and no significant valvular abnormalities. PG Care Time/CCT Total # of Minutes Spent Total Time Spent with Patient: Total time spent is greater than 50% in coordination of care (as documented) at patient's floor/unit and/or counseling patient: Coding Level of Care Code 24095 INT INP/OBS CARE 3/75MIN Diagnoses Atrial flutter I48.92 Elevated troponin R77.8
--- NOTE | 2023-01-25 16:44 | XCELERA ---
[id number]
[2023-01-25 16:46] LABS: Partial Thromboplastin Ratio 1.4; Partial Thromboplastin Time 39.3 Seconds (21.0-31.0)
[2023-01-25] MEDS: ROSUVASTATIN CALCIUM 20 MG TAB PO SCH (20:46)
[2023-01-25] MEDS: SERTRALINE HCL 50 MG TABLET PO SCH (20:46)
[2023-01-25] MEDS ORDERED: METOPROLOL SUCC 25MG EXT REL TAB PO SCH (21:00)
[2023-01-25] MEDS ORDERED: FAMOTIDINE 10 MG TABLET PO ONE (23:49)
[2023-01-25] MEDS ORDERED: CALCIUM CARBONATE 500 MG CHEWABLE TAB PO PRN (23:49)
[2023-01-26] MEDS: HEPARIN SODIUM/DEXTROSE 25,000 UNITS/500 ML BAG IV SCH ×3 (00:27→21:27)
[2023-01-26 00:34] LABS: Partial Thromboplastin Ratio 1.4; Partial Thromboplastin Time 39.4 Seconds (21.0-31.0)
[2023-01-26] MEDS: dilTIAZem HCL 125 MG in DEXTROSE 5% 100 ML IV SCH ×3 (05:48→23:57)
[2023-01-26 07:14] LABS: Hematocrit (blood only) 39.9 % (42.0-52.0); Hemoglobin 13.9 g/dl (14.0-18.0); Mean Corpuscular Hemoglobin 33.3 pg (25.0-34.0); Mean Corpuscular Hgb Conc 34.8 g/dL (32.0-36.0); Mean Corpuscular Volume 95.7 fL (80.0-100.0); Mean Platelet Volume 11.2 fL (9.4-12.4); Platelet Count 215 K/uL (130-400); RDW Coefficient of Variation 13.6 % (11.5-14.5); RDW Standard Deviation 47.8 fL (36.4-46.3); Red Blood Count 4.17 M/uL (4.70-6.10); White Blood Count 7.72 K/ul (4.8-10.8)
[2023-01-26 07:21] LABS: Albumin Globulin Ratio 1.4 (0.9-2); Albumin Level 3.8 gm/dl (3.4-5.0); BUN Creatinine Ratio 11.4 (10-20); Bilirubin,Total 0.5 mg/dl (0.2-1.0); Calcium 8.7 mg/dl (8.6-10.3); Est GFR (African American) 125.8 ml/min; Est GFR (Non-African American) 108.5 ml/min; Globulin 2.8 gm/dl (2.5-4.0); Magnesium 1.8 mg/dl (1.7-2.4); Potassium 3.6 mmol/L (3.5-5.1); Total Protein 6.6 gm/dl (6.0-8.3)
[2023-01-26 08:11] LABS: Partial Thromboplastin Ratio 1.5
[2023-01-26 08:16] LABS: Partial Thromboplastin Time 43.7 Seconds (21.0-31.0)
[2023-01-26] MEDS: THIAMINE HCL 100 MG TAB PO SCH (09:00)
[2023-01-26] MEDS: POTASSIUM CHLORIDE CRTAB 20 MEQ TABCR PO SCH (09:00)
[2023-01-26] MEDS: FOLIC ACID 1 MG TAB PO SCH (09:00)
--- NOTE | 2023-01-26 09:36 | Hospitalist Progress Note ---
Date of Service January 26, 2023 Assessment & Plan (1) Atrial flutter: Plan: -Three day history of pre syncope, diaphoresis, headache prior to admission. - A flutter noted on admission, HR 130s.Has remained in the 120 to 130s overnight on telemetry. - Remains on Diltiazem drip at max dose. Also received Digoxin 250 mcg IV x 1 dose. - Cardiology consulted. Metoprolol dose increased by Dr. Wagner. Plan for possible INGE guided cardioversion tomorrow. - Heparin drip, will eventually need transitioned to DOAC therapy prior to discharge. - BP stable, with exception of one reading overnight at 95/57. Continue to monitor. Holding home anti-hypertensives - ECHO completed. EF 55-60%, normal LV size, no significant valvular pathology - Maintain Mag >2, K >4 - received Mag sulfate infusion yesterday. KCl 20 mEq PO qAM ordered. K normal at 3.6, and mag of 1.8 this AM. (2) Elevated troponin: Plan: -Initial reading 34.7, improved to 31.2. - No overt ischemic change on EKG - Daily EKG, continuous cardiac monitoring. (3) Alcohol abuse: Plan: - Patient admits to drinking 15-20 beers daily for the past several years. - No withdrawal symptoms this morning. - Received banana bag; daily folate and thiamine ordered. - Patient interested in starting Naltrexone. Will start 50mg daily. (4) Hypertension: Plan: -Stable -Continue to monitor. -Continue holding home anti-hypertensives. (5) Hyperlipidemia: Plan: -Continue home crestor, hold home repatha (6) Transaminitis: Plan: -Suspect hepatic steatosis 2/2 alcohol use disorder. - Normal yesterday, AST bumped to 43 today. - Monitor, Repeat labs in AM. (7) Obesity: Plan: - BMI 46.2. - Encourage weight loss, heart healthy diet Plan FEN: Heart healthy diet. Code status: full code DVT ppx: heparin gtt, will eventually transition to DOAC therapy. Dispo: PCU; cardiology consulted for further management. Plan for possible INGE guided cardioversion tomorrow Admission and Anticipated Discharge Date Admission Date: January 24, 2023 Subjective 52 year old male admitted with a-flutter. Seen by cardiology. Planning for INGE cardioversion tomorrow. Patient reports he continues to have some chest fluttering, but denies pain. He notes occasional heart burn and SOB as well. Otherwise states he is doing well. He reports he is interested in trying naltrexone for heavy alcohol use. He notes drinking approximately 15-20 beers per day for the past several years. Review of Systems Review of Systems: All systems reviewed & are unremarkable except as noted in Subjective Physical Exam Physical Exam: Temp Pulse Resp BP Pulse Ox O2 Del Method 36.5 C 135 H 21 110/73 95 Room Air 01/26/23 07:59 01/26/23 07:59 01/26/23 07:59 01/26/23 07:59 01/26/23 07:59 01/26/23 07:59 Patient is afebrile. He is tachycardic. Constitutional: + obese; no acute distress Eyes: + anicteric sclerae ENMT: Ears: no hearing impairment Neck: Thyroid: normal thyroid Respiratory: normal respiratory effort, lungs clear to auscultation Cardiovascular: Rate/Rhythm: regular rhythm and + tachycardic Vessels: no JVD Extremities: no edema Gastrointestinal (Abdomen): Inspection/Auscultation: normal bowel sounds Percussion/Palpation: abdomen soft; abdomen nontender Musculoskeletal: Head/Neck/Chest: normocephalic and head atraumatic Psychiatric: A+Ox3, euthymic affect Lymphatic: no cervical lymphadenopathy Results & Data Results & Data Vital Signs (Past 12 Hours) Vital Signs Temp Pulse Pulse Resp BP Pulse Ox O2 Del Method 01/26/23 07:00 141 H 01/26/23 07:59 36.5 C 135 H 21 110/73 95 Room Air 01/26/23 03:44 36.6 C 101 H 18 95/57 L 93 Room Air 01/25/23 23:00 126 H 01/25/23 23:50 36.9 C 98 H 18 116/84 94 Room Air PG Care Time/CCT Total # of Minutes Spent Total Time Spent with Patient: Total time spent is greater than 50% in coordination of care (as documented) at patient's floor/unit and/or counseling patient: Coding Level of Care Code 27845 SUB INP/OBS CARE 2/35MIN Medical Decision Making Moderate Complexity Diagnoses Atrial flutter I48.92 Elevated troponin R77.8 Alcohol abuse F10.10 Hypertension I10 Hyperlipidemia E78.5 Transaminitis R74.01 Obesity E66.9
--- NOTE | 2023-01-26 10:05 | Cardiology Progress Note ---
Date of Service January 26, 2023 Assessment & Plan (1) Atrial flutter: (2) Elevated troponin: Plan 1. Atrial flutter: He remains in atrial flutter with a heart rate which remains elevated. Ideally we would try to convert his rhythm back to normal, I am concerned about doing this with the duration of the atrial arrhythmia that he had based on symptoms (several days before receiving anticoagulation) and I do not think it is safe to perform cardioversion (either chemically or elect rically) without a negative INGE. We can consider INGE guided cardioversion on Friday. If we can control his heart rate we could hold off and do the cardioversion in the future but with slow atrial flutter heart rate control can sometimes be very difficult. He is on intravenous diltiazem but I am going to go up on his beta-santo today as well. 2. Anticoagulation: Although his [id number] score is not elevated we should start anticoagulation so that we can safely perform cardioversion. Whether he will need anticoagulation over the long run or not is not clear. 3. Elevated troponin: His troponin is minimally elevated, not increasing over several hours in the emergency room, and I believe is well within the range 1 would expect with a tachycardia at this rate. I would not pursue further. Admission and Anticipated Discharge Date Admission Date: January 24, 2023 Physical Exam Physical Exam: Constitutional: Alert, cooperative and in no distress. He is obese. HEENT: Unremarkable Neck: No jugular venous distention, carotid pulses are irregular but otherwise normal and equal bilaterally without bruits. Pulmonary: Clear to auscultation bilaterally. Cardiac: Irregular rhythm with no murmur, gallop or rub. Abdomen: Soft, nontender with normal bowel sounds. Extremities: No edema. Distal pulses intact. Neurologic: No focal findings. Gait was not tested. Skin: No rash, ecchymoses or petechiae. Results & Data Vital Signs (Past 12 Hours) Vital Signs Temp Pulse Pulse Resp BP Pulse Ox O2 Del Method 01/26/23 07:00 141 H 01/26/23 07:59 36.5 C 135 H 21 110/73 95 Room Air 01/26/23 03:44 36.6 C 101 H 18 95/57 L 93 Room Air 01/25/23 23:00 126 H 01/25/23 23:50 36.9 C 98 H 18 116/84 94 Room Air Laboratory Results Cardiac Enzymes 01/26/23 Range/Units 06:31 AST 43 H (13-39) U/L Coagulation 01/25/23 01/25/23 01/26/23 Range/Units 16:01 23:26 06:31 APTT 39.3 H 39.4 H 43.7 H* (21.0-31.0) Seconds CBC 01/26/23 Range/Units 06:31 WBC 7.72 (4.8-10.8) K/ul RBC 4.17 L (4.70-6.10) M/uL Hgb 13.9 L (14.0-18.0) g/dl Hct 39.9 L (42.0-52.0) % Plt Count 215 (130-400) K/uL Comprehensive Metabolic Panel 01/26/23 Range/Units 06:31 Sodium 138 (136-145) mmol/L Potassium 3.6 (3.5-5.1) mmol/L Chloride 106 (98-107) mmol/L Carbon Dioxide 26 (21-32) mmol/L BUN 8 (6-23) mg/dl Creatinine 0.70 (0.6-1.4) mg/dl Glucose 111 H (70-99(Fasting)) mg/dl Calcium 8.7 (8.6-10.3) mg/dl AST 43 H (13-39) U/L ALT 45 (7-52) U/L Alkaline Phosphatase 62 (34-104) U/L Total Protein 6.6 (6.0-8.3) gm/dl Albumin 3.8 (3.4-5.0) gm/dl Intake and Output 01/25/23 01/26/23 01/26/23 22:59 06:59 14:59 Intake Total 1839.833 / 4422.066 672.167 / 4422.066 70.5 / 70.5 Balance 1839.833 / 4422.066 672.167 / 4422.066 70.5 / 70.5 Intake: IV 1379.833 / 3362.066 672.167 / 3362.066 70.5 / 70.5 Heparin Sodium/Dextrose 25,000 254.833 / 1048.483 547.167 / 1048.483 70.5 / 70.5 units In 500 ml @ 2,350 UNITS/ HR 47 mls/hr IV .[id number] [facility] Rx #:[id number] Sodium Chloride 0.9% 1000ML 1, 1000 / 1893.333 000 ml @ 80 mls/hr IV .[id number] [facility] Rx#:[id number] dilTIAZem HCL 125 mg In 125 / 320.25 125 / 320.25 Dextrose 5% 100 ml @ 15 MG/HR 15 mls/hr IV .[id number] [facility] Rx#: [id number] Oral 460 / 1060 Other: Other Intake Source Sips # Unmeasured Voids 1 Diagnostic Findings Telemetry: Atrial flutter with still rapid ventricular response, ranging from around 105 to 110 bpm on average PG Care Time/CCT Total # of Minutes Spent Total Time Spent with Patient: Total time spent is greater than 50% in coordination of care (as documented) at patient's floor/unit and/or counseling patient: Coding Level of Care Code 68952 SUB INP/OBS CARE 3/50MIN Diagnoses Atrial flutter I48.92 Elevated troponin R77.8
[2023-01-26] MEDS: METOPROLOL TARTRATE 50 MG TAB PO SCH ×2 (12:10→21:27)
--- NOTE | 2023-01-26 19:35 | Billing Data ---
Date of Service January 26, 2023 Coding Level of Care Code 67969 INT INP/OBS CARE
--- NOTE | 2023-01-26 20:03 | Electrocardiogram Report ---
Test Reason : Blood Pressure : / mmHG Vent. Rate : 138 BPM Atrial Rate : 138 BPM P-R Int : 096 ms QRS Dur : 128 ms QT Int : 338 ms P-R-T Axes : 000 -26 083 degrees QTc Int : 512 ms Atrial flutter with 2 to 1 block Minimal voltage criteria for LVH, may be normal variant ( [place] product ) Abnormal ECG When compared with ECG of 26-DEC-2015 13:50, Atrial flutter with 2 to 1 block Confirmed by Suresh Felton ([id number]) on 01/26/2023 8:02:50 PM Referred By: Srikanth Womack Confirmed By:Suresh Felton
--- NOTE | 2023-01-26 20:11 | Electrocardiogram Report ---
Test Reason : Blood Pressure : / mmHG Vent. Rate : 136 BPM Atrial Rate : 272 BPM P-R Int : 000 ms QRS Dur : 082 ms QT Int : 264 ms P-R-T Axes : 261 -60 -24 degrees QTc Int : 397 ms Atrial flutter with 2:1 A-V conduction Left axis deviation Pulmonary disease pattern Abnormal ECG When compared with ECG of 24-JAN-2023 18:46, (unconfirmed) No significant change Confirmed by Suresh Felton ([id number]) on 01/26/2023 8:10:42 PM Referred By: Srikanth Womack Confirmed By:Suresh Felton
--- NOTE | 2023-01-26 20:11 | Electrocardiogram Report ---
Test Reason : Blood Pressure : / mmHG Vent. Rate : 135 BPM Atrial Rate : 270 BPM P-R Int : 000 ms QRS Dur : 082 ms QT Int : 392 ms P-R-T Axes : 262 -59 -81 degrees QTc Int : 588 ms Atrial flutter with 2:1 A-V conduction Pulmonary disease pattern Left anterior fascicular block Abnormal ECG When compared with ECG of 24-JAN-2023 19:07, (unconfirmed) No significant change Confirmed by Suresh Felton ([id number]) on 01/26/2023 8:11:27 PM Referred By: Srikanth Womack Confirmed By:Suresh Felton
--- NOTE | 2023-01-26 20:12 | Electrocardiogram Report ---
Test Reason : Blood Pressure : / mmHG Vent. Rate : 134 BPM Atrial Rate : 268 BPM P-R Int : 000 ms QRS Dur : 152 ms QT Int : 400 ms P-R-T Axes : 257 -55 -59 degrees QTc Int : 597 ms Atrial flutter with 2:1 A-V conduction Left axis deviation Non-specific intra-ventricular conduction block Minimal voltage criteria for LVH, may be normal variant ( [place] product ) Abnormal ECG When compared with ECG of 24-JAN-2023 19:17, (unconfirmed) No significant change Confirmed by Suresh Felton ([id number]) on 01/26/2023 8:12:26 PM Referred By: Srikanth Womack Confirmed By:Suresh Felton
[2023-01-26] MEDS: ROSUVASTATIN CALCIUM 20 MG TAB PO SCH (21:27)
[2023-01-26] MEDS: SERTRALINE HCL 50 MG TABLET PO SCH (21:27)
[2023-01-27 06:48] LABS: Hematocrit (blood only) 39.7 % (42.0-52.0); Hemoglobin 13.4 g/dl (14.0-18.0); Mean Corpuscular Hemoglobin 33.4 pg (25.0-34.0); Mean Corpuscular Hgb Conc 33.8 g/dL (32.0-36.0); Mean Platelet Volume 10.8 fL (9.4-12.4); Platelet Count 198 K/uL (130-400); RDW Coefficient of Variation 13.6 % (11.5-14.5); RDW Standard Deviation 50.1 fL (36.4-46.3); Red Blood Count 4.01 M/uL (4.70-6.10); White Blood Count 8.72 K/ul (4.8-10.8)
[2023-01-27 07:06] LABS: Albumin Globulin Ratio 1.3 (0.9-2); Albumin Level 3.7 gm/dl (3.4-5.0); BUN Creatinine Ratio 9.5 (10-20); Bilirubin,Total 0.5 mg/dl (0.2-1.0); Creatinine Clr Calc Pharmacy 189.2 ml/min; Est GFR (African American) 122.9 ml/min; Est GFR (Non-African American) 106.1 ml/min; Globulin 2.9 gm/dl (2.5-4.0); Total Protein 6.6 gm/dl (6.0-8.3)
[2023-01-27 07:30] LABS: Partial Thromboplastin Ratio 1.6
--- NOTE | 2023-01-27 07:36 | Hospitalist Progress Note ---
Date of Service January 27, 2023 Assessment & Plan (1) Atrial flutter: Plan: -Three day history of pre syncope, diaphoresis, headache prior to admission. - A flutter noted on admission, HR 130s.Has remained in the 120 to 130s - Remains on Diltiazem drip Also received Digoxin 250 mcg IV x 1 dose. - Cardiology consulted. Metoprolol dose increased by Dr. Wagner. Plan for possible INGE guided cardioversion 01/27/2023 - Heparin drip, will eventually need transitioned to DOAC therapy prior to discharge. - - ECHO completed. EF 55-60%, normal LV size, no significant valvular pathology - Maintain electrolyte repletion (2) Elevated troponin: Plan: -Initial reading 34.7, improved to 31.2. Likely demand ischemia from fast rate - No overt ischemic change on EKG (3) Alcohol abuse: Plan: - Patient admits to drinking 15-20 beers daily for the past several years. - No withdrawal symptoms this morning. - Received banana bag; daily folate and thiamine ordered. - Patient interested in starting Naltrexone. Will start 50mg daily. (4) Hyperlipidemia: Plan: -Continue home crestor, hold home repatha (5) Transaminitis: Plan: -Suspect hepatic steatosis 2/2 alcohol use disorder. - (6) Obesity: Plan: - BMI 46.2. - Encourage weight loss, heart healthy diet Plan Code status: full code DVT ppx: heparin gtt, will eventually transition to DOAC therapy. Admission and Anticipated Discharge Date Admission Date: January 24, 2023 Results & Data Results & Data Vital Signs (Past 12 Hours) Vital Signs Temp Pulse Pulse Pulse Resp BP Pulse Ox 01/27/23 07:32 97.9 F 93 H 16 108/68 94 01/27/23 03:42 98.2 F 88 20 102/60 95 01/27/23 00:41 85 01/26/23 22:54 98.6 F 91 H 18 109/79 94 O2 Del Method 01/27/23 07:32 Room Air 01/27/23 03:42 Room Air 01/27/23 00:41 01/26/23 22:54 Room Air PG Care Time/CCT Total # of Minutes Spent Total Time Spent with Patient: Total time spent is greater than 50% in coordination of care (as documented) at patient's floor/unit and/or counseling patient: Coding Diagnoses Atrial flutter I48.92 Elevated troponin R77.8 Alcohol abuse F10.10 Hyperlipidemia E78.5 Transaminitis R74.01 Obesity E66.9
[2023-01-27 07:43] LABS: Partial Thromboplastin Time 44.4 Seconds (21.0-31.0)
[2023-01-27] MEDS: HEPARIN SODIUM/DEXTROSE 25,000 UNITS/500 ML BAG IV SCH (07:49)
[2023-01-27] MEDS: dilTIAZem HCL 125 MG in DEXTROSE 5% 100 ML IV SCH ×2 (07:50→12:02)
[2023-01-27] MEDS: FOLIC ACID 1 MG TAB PO SCH (08:30)
[2023-01-27] MEDS: POTASSIUM CHLORIDE CRTAB 20 MEQ TABCR PO SCH (08:30)
[2023-01-27] MEDS: THIAMINE HCL 100 MG TAB PO SCH (08:31)
[2023-01-27] MEDS: METOPROLOL TARTRATE 50 MG TAB PO SCH (08:51)
[2023-01-27] MEDS ORDERED: NALTREXONE HCL 50 MG TAB PO SCH (09:00)
--- NOTE | 2023-01-27 10:28 | Anesthesiology Consultation ---
Date of Service January 27, 2023 Assessment & Plan (1) Encounter for pre-operative examination: Chart Review Chart Review: Acceptable Risk for Surgery and Patient NOT seen in Pre Admission Testing Consults Requested none History Surgery Operation Date: 01/27/23 10:45 Proposed Procedures p Transesophageal Echo w/Anesthesia - Kingsley Marshall MD s Cardioversion Scale Balancer w/Anesthesia - Kingsley Marshall MD Height/Weight Height: 6 ft 2 in Weight: 163.1 kg Allergies Allergy/AdvReac Type Severity Reaction Status Date / Time No Known Allergies Allergy Unverified 02/07/16 07:44 Medications Home Medications Medication Instructions Recorded Confirmed Last Taken evolocumab 420 mg/3.5 mL 420 mg subcut MONTHLY 01/24/23 01/24/23 01/15/23 subcutaneous wearable injector (Repatha Pushtronex) lisinopril 20 1 tab PO DAILY 01/24/23 01/24/23 01/24/23 mg-hydrochlorothiazide 25 mg tablet metoprolol succinate 25 mg 25 mg PO QPM 01/24/23 01/24/23 01/23/23 tablet,extended release 24 hr rosuvastatin 40 mg tablet 40 mg PO QPM 01/24/23 01/24/23 01/23/23 sertraline 50 mg tablet 50 mg PO QPM 01/24/23 01/24/23 01/23/23 Active Medications Generic Name Dose Route Start Last Admin Trade Name Freq PRN Reason Stop Dose Admin Folic Acid 1 mg 01/25/23 09:00 01/27/23 08:30 Folic Acid 1 Mg Tab PO 02/24/23 08:59 1 mg QAM NIKKY Administration Diltiazem HCl 125 mg/ Dextrose 125 mls @ 15 mls/hr 01/24/23 19:30 01/27/23 07:50 IV 02/23/23 19:29 15 mg/hr .Q8H20M NIKKY 15 mls/hr Administration Protocol 15 MG/HR Heparin Sodium/Dextrose 25,000 units in 500 mls @ 47 mls/hr 01/24/23 23:00 01/27/23 07:49 Heparin Sodium/Dextrose IV 02/23/23 22:59 2,350 units/hr .[id number] NIKKY 47 mls/hr Administration Protocol 2,350 UNITS/HR Metoprolol Tartrate 50 mg 01/26/23 10:15 01/27/23 08:51 Metoprolol Tartrate 50 Mg Tab PO 02/25/23 10:14 50 mg BID NIKKY Administration Naltrexone HCl 50 mg 01/27/23 09:00 01/27/23 08:31 Naltrexone Hcl 50 Mg Tab PO 02/26/23 08:59 50 mg DAILY NIKKY Administration Potassium Chloride 20 meq 01/25/23 09:00 01/27/23 08:30 Potassium Chloride Crtab 20 Meq Tabcr PO 02/24/23 08:59 20 meq QAM NIKKY Administration Rosuvastatin Calcium 40 mg 01/25/23 21:00 01/26/23 21:27 Rosuvastatin Calcium 20 Mg Tab PO 02/24/23 20:59 40 mg QPM NIKKY Administration Sertraline HCl 50 mg 01/25/23 21:00 01/26/23 21:27 Sertraline Hcl 50 Mg Tablet PO 02/24/23 20:59 50 mg QPM NIKKY Administration Thiamine HCl 100 mg 01/25/23 09:00 01/27/23 08:31 Thiamine Hcl 100 Mg Tab PO 02/24/23 08:59 100 mg QAM NIKKY Administration Past Medical History Medical History Alcohol use disorder Hyperlipidemia Hypertension No pertinent family history Past Surgical History Surgical History No pertinent past surgical history Social History Smoking Status: Never smoker tobacco type: smokeless tobacco Do You Dip or Chew Tobacco: Yes Hx Alcohol Use: Yes Alcohol type: beer alcohol intake frequency: 3 or more drinks per day Alcohol Intake Frequency Comment: friday, and friday 3 beers each day. before that 10+ per day Hx Substance Use: No Physical Exam Vital Signs Last Vital Signs Temp 97.9 F 01/27/23 07:32 Pulse 104 H 01/27/23 08:00 Resp 16 01/27/23 07:32 BP 108/68 01/27/23 07:32 Pulse Ox 94 01/27/23 07:32 O2 Del Method Room Air 01/27/23 07:32 Testing Laboratory Results 01/27/23 06:21 01/27/23 06:21 PT 10.8 Seconds (9.0-12.0) 01/24/23 18:50 INR 1.0 (0.9-1.1) 01/24/23 18:50 APTT 44.4 Seconds (21.0-31.0) H* 01/27/23 06:21 Electrocardiogram Date: 01/24/23 afluttter 2:1 conduction Echocardiogram Date: 01/25/23 EF: 55-60 LV Function: normal
[2023-01-27] MEDS ORDERED: BENZOCAINE/TETRACAIN/BUTAM 50 APPLN/5 GM CAN EXT ONE (10:42)
[2023-01-27] MEDS ORDERED: LIDOCAINE 2% 2 ML VIAL/AMP(20MG/ML) INFIL ONE (10:55)
[2023-01-27] MEDS ORDERED: PROPOFOL IV EMULSION 10 MG/ML 20 ML VIAL IV ONE (10:55)
--- NOTE | 2023-01-27 11:19 | Cardioversion ---
Date of Service January 27, 2023 PG Electrical Cardioversion Rp Electrical Cardioversion Report Procedure performed: Cardioversion Indication: Atrial flutter Staff awning craftsperson: Kingsley Marshall MD Procedure in detail: The patient was informed of the risks benefits and alternatives to the intended procedure. He understood such which proceed. He was taken to the cardiac catheterization suite holding area. A general anesthetic was administered by the Anesthesiology Service. Once appropriately anesthetized, the patient was cardioverted using 50 joules delivered in a biphasic fashion. This change the rhythm to atrial fibrillation. A 2nd therapy with 360 joules delivered in a biphasic fashion returned the patient to sinus rhythm. The patient tolerated procedure well, there were no immediate complications. Patient was neurologically intact subsequent to the procedure. Impression: Successful cardioversion from atrial flutter to normal sinus rhythm Coding Level of Care Code 44698 CARDIOVERSION, ELECTIVE Additional Codes Electrical Cardioversion Report ([id number])
--- NOTE | 2023-01-27 11:34 | Cardiology Progress Note ---
Date of Service January 27, 2023 Assessment & Plan (1) Atrial flutter: (2) Elevated troponin: Plan 1. Atrial flutter: He underwent T and cardioversion today. Heart rates normal. Think he could be discharged on anticoagulation and metoprolol succinate 50 mg daily. Given his obesity he would be a better candidate for Xarelto 20 mg daily. I discussed the option for catheter based therapy with the patient today. He is interested in pursuing an ablation. I will make these arrangements as an outpatient. 2. Anticoagulation: Continue heparin until his 1st dose of Xarelto is given. 3. Elevated troponin: Likely demand related. Admission and Anticipated Discharge Date Admission Date: January 24, 2023 Subjective This morning the patient underwent a transesophageal echocardiogram cardioversion. Subsequently he claims to be feeling well. No current chest pain. No sense of palpitations. No breathing difficulty. Review of Systems Review of Systems: Per HPI Physical Exam Physical Exam: The patient is alert and oriented. Mood and affect appeared normal. He answered all questions appropriately. HEENT: Pupils are equal and reactive to light and accommodation. Extraocular movements are intact. The sclerae are anicteric. Neuro: Cranial nerves intact Neck: Redundant neck tissue Lungs: Normal respiratory effort Cardiac: Heart demonstrates an irregular rhythm. Normal rate. Pulses: The patient has palpable radial pulses bilaterally that are equal in intensity Extremities: There was no evidence of hypoperfusion. There is no cyanosis or clubbing. Skin: I did not appreciate any rashes on examination today. Results & Data Vital Signs (Past 12 Hours) Vital Signs Temp Pulse Pulse Pulse Resp BP Pulse Ox 01/27/23 11:21 36.7 C 70 74 23 105/68 95 01/27/23 10:39 66 22 102/76 94 01/27/23 08:00 104 H 01/27/23 07:32 36.6 C 93 H 16 108/68 94 01/27/23 03:42 36.8 C 88 20 102/60 95 01/27/23 00:41 85 O2 Del Method 01/27/23 11:21 Room Air 01/27/23 10:39 Room Air 01/27/23 08:00 01/27/23 07:32 Room Air 01/27/23 03:42 Room Air 01/27/23 00:41 Laboratory Results Abnormal Lab Results 01/27/23 01/27/23 01/27/23 06:21 06:21 06:21 WBC 8.72 RBC 4.01 L Hgb 13.4 L Hct 39.7 L MCV 99.0 MCH 33.4 MCHC 33.8 RDW Std Deviation 50.1 H RDW Coeff of Anselmo 13.6 Plt Count 198 MPV 10.8 APTT 44.4 H* PTT Ratio 1.6 Sodium 139 Potassium 4.0 Chloride 105 Carbon Dioxide 28 Anion Gap 6 BUN 7 Creatinine 0.74 Est Cr Clr Drug Dosing 189.2 Est GFR ( Amer) 122.9 Est GFR (Non-Af Amer) 106.1 BUN/Creatinine Ratio 9.5 L Glucose 102 H Calcium 9.0 Total Bilirubin 0.5 AST 33 ALT 41 Alkaline Phosphatase 56 Total Protein 6.6 Albumin 3.7 Globulin 2.9 Albumin/Globulin Ratio 1.3 PG Care Time/CCT Total # of Minutes Spent Total Time Spent with Patient: Total time spent is greater than 50% in coordination of care (as documented) at patient's floor/unit and/or counseling patient: Coding Level of Care Code 59501 SUB INP/OBS CARE 2/35MIN Diagnoses Atrial flutter I48.92 Elevated troponin R77.8
--- NOTE | 2023-01-27 11:53 | XCELERA ---
[id number]
--- NOTE | 2023-01-27 12:25 | Anesthesiology Progress Note ---
Date of Service January 27, 2023 Anesthesia Post Procedure Vital Signs Vital Signs: Temp Pulse Pulse Pulse Resp BP Pulse Ox 01/27/23 11:41 98.1 F 66 66 17 102/68 93 01/27/23 11:36 98.1 F 68 68 25 H 96/67 L 93 01/27/23 11:31 98.1 F 71 71 19 96/70 L 92 01/27/23 11:21 98.1 F 70 74 23 105/68 95 01/27/23 10:39 66 22 102/76 94 01/27/23 08:00 104 H 01/27/23 07:32 97.9 F 93 H 16 108/68 94 01/27/23 03:42 98.2 F 88 20 102/60 95 01/27/23 00:41 85 01/26/23 22:54 98.6 F 91 H 18 109/79 94 01/26/23 19:03 98.4 F 69 20 121/74 93 01/26/23 15:00 68 O2 Del Method 01/27/23 11:41 Room Air 01/27/23 11:36 Room Air 01/27/23 11:31 Room Air 01/27/23 11:21 Room Air 01/27/23 10:39 Room Air 01/27/23 08:00 01/27/23 07:32 Room Air 01/27/23 03:42 Room Air 01/27/23 00:41 01/26/23 22:54 Room Air 01/26/23 19:03 Room Air 01/26/23 15:00 Transfer of Care Handoff Completed per policy Notes Mental Status: alert / awake / arousable and participated in evaluation Patient Amnestic to Procedure: Yes Nausea / Vomiting: adequately controlled Pain: adequately controlled Airway Patency, RR, SpO2: stable & adequate BP & HR: stable & adequate Hydration State: stable & adequate Anesthetic Complications: no major complications apparent and Pt Satisfied with anesthetic care
--- NOTE | 2023-01-27 17:05 | Electrocardiogram Report ---
Test Reason : Blood Pressure : / mmHG Vent. Rate : 065 BPM Atrial Rate : 065 BPM P-R Int : 158 ms QRS Dur : 090 ms QT Int : 436 ms P-R-T Axes : 056 -37 033 degrees QTc Int : 453 ms Poor data quality, interpretation may be adversely affected Normal sinus rhythm Left axis deviation Abnormal ECG When compared with ECG of 24-JAN-2023 19:36, Sinus rhythm has replaced atrial flutter Confirmed by Kingsley Marshall ([id number]) on 01/27/2023 5:05:27 PM Referred By: Srikanth Womack Confirmed By:Vic Marshall
--- NOTE | 2023-01-27 17:10 | Discharge Summary ---
Date of Service January 27, 2023 Admission HPI Per Admitting Provider 52yo male with a history of HTN, HLD, and alcohol use disorder presents with a three-day history of intermittent episodes of lightheadedness, sweating, back pain, headache, and SOB. - has had symptomatic episodes once per day today and each of the last two days - lightheadedness, sweating, pain between shoulderblades, headache, SOB; symptoms worse with exertion; no over chest pain - each episode has spontaneously resolved after about an hour - no history of similar symptoms - feels "great' at the moment - reports drinking 15-20 beers daily, though after his symptomatic episode Friday (two days ago) only had three beers; had three yesterday and two today Patient denies fever, chills, vision changes, CP, abdominal pain, nausea, vomiting, dysuria, hematochezia, melena, numbness, or other symptoms. Denies recent illness and recent travel. Upon arrival, vitals were notable for elevated BP (140s/90s) and tachcardia (130s); no tachypnea, patient afebrile, spO2 adequate on room air. Initial labs were notable for elevated WBC (12.05), elevated AST (48), elevated ALT (62), and elevated hsTroponin (34.7); no anemia, platelets wnl, no electrolyte abnormalities, creatinine not elevated, Tbili not elevated, covid PCR negative. In the ED, patient was started on a diltiazem drip. EKG: atrial flutter, no overt ischemic change Imaging: CXR: mild cardiomegaly, no acute process CT head: no acute intracranial abnormality Surrogate decision-maker in case of an emergency: cammy Sofia (cell: [phone]) Principal Diagnosis aflutter with cardioversion alcohol use with request for naltrexone Discharge Exam Patient awake alert appropriate patient has returned to sinus rhythm and has no change with mild ambulation in the unit Card exam is regular Lungs are clear Discharge Data Allergies Allergy/AdvReac Type Severity Reaction Status Date / Time No Known Allergies Allergy Unverified 02/07/16 07:44 Consultations 01/24/23 20:49 ED Decision to Admit Stat 01/25/23 08:17 Consult Cardiology Routine Procedures Performed Operation Date: 01/27/23 10:45 Actual Procedures p Echo Transesophageal - Kingsley Marshall MD Ordered Studies 01/24/23 18:48 CT head/brain wo con Stat Hospital Course (1) Atrial flutter: -Three day history of pre syncope, diaphoresis, headache prior to admission. - A flutter INGE guided cardioversion 01/27/2023 -Transition to Xarelto given BMI 46 likely maintain for 1 month we will let this determination up to cardiology as an outpatient Cardiology recommended metoprolol succinate 50 mg once a day - - ECHO completed. EF 55-60%, normal LV size, no significant valvular pathology - (2) Elevated troponin: -Initial reading 34.7, improved to 31.2. Likely demand ischemia from fast rate - No overt ischemic change on EKG (3) Alcohol abuse: - Patient admits to drinking 15-20 beers daily for the past several years. - No withdrawal symptoms this morning. - Received banana bag; daily folate and thiamine given while inpatient - Patient interested in starting Naltrexone. Will start 50mg daily. Educated on alcohol cessation (4) Hyperlipidemia: -Continue home crestor, hold home repatha (5) Transaminitis: -Suspect hepatic steatosis 2/2 alcohol use disorder. - (6) Obesity: - BMI 46.2. - Encourage weight loss, heart healthy diet Plan Code status: full code Total Time Total Time Spent Total Time Spent (In Minutes): It required greater than 30 minutes to prepare this patient for discharge Discharge Plan Discharge Items Patient Disposition: Home - Self-Care Reason For Visit: ATRIAL FLUTTER, DIZZINESS, DIAPHORESIS Discharge Diagnosis: atrial flutter s/p cardioversion alcohol use Activity: Resume your previous activity Non-emergency contact: Primary Care Provider and Thread Cutter Call non-emergency contact if: your symptoms worsen Follow-up/Referrals: Kingsley Marshall MD [Physician] - 02/12/23 9:00 am Srikanth Womack [Primary Care Provider] - (PLEASE SCHEDULE A FOLLOW UP APT WITH YOUR PRIMARY CARE) Diet: Regular Addtl Attending Provider Instructions: please do not drink or use snug take your medications faithfully and follow up with dr Marshall Pending Studies at Discharge: No Stand-Alone Forms: My [facility] X[facility], Smoking Cessation Medications and DC Order Prescriptions: New naltrexone 50 mg Tablet 50 mg PO DAILY Qty: 30 0RF Xarelto 20 mg tablet 20 mg PO DAILY Qty: 30 5RF Rx Instructions: must administer with evening meal Continued sertraline 50 mg tablet 50 mg PO QPM rosuvastatin 40 mg tablet 40 mg PO QPM Repatha Pushtronex 420 mg/3.5 mL wearable injector 420 mg SUBCUT MONTHLY Changed metoprolol succinate 25 mg tablet extended release 24 hr 50 mg PO DAILY Qty: 60 3RF Discontinued lisinopril-hydrochlorothiazide 20-25 mg tablet 1 tab PO DAILY Discharge Orders: Discharge Order (Routine); Ordered 01/27/23 Ordered By: Toño Cordero Admission Data Admit Date/Time: 01/24/23 21:34 Attending Provider: Toño Cordero Admit Provider: Kai Sharma Primary Care Provider: Srikanth Womack Other Providers: Thierno Buitrago ; Suresh Felton Other Interventions: Discharge Summary Assessment (RN) Last Done: 01/27/23 14:11 Coding Level of Care Code 47687 INP/OBS DISCH >30 MIN Diagnoses Atrial flutter I48.92 Elevated troponin R77.8 Alcohol abuse F10.10 Hyperlipidemia E78.5 Transaminitis R74.01 Obesity E66.9
== END 2023-01-27 14:59 | disposition home or self-care (01) | DRG 309 ==
LOC: ED 18:21 → SUATTDRO 21:34 → 2S 21:34

== ENCOUNTER 2025-09-10 08:17 | Inpatient (IN) ==
--- NOTE | 2025-09-10 08:38 | Emergency Department Note ---
History of Present Illness General Chief complaint: Respiratory Problems Stated complaint: CANNOT BREATH, LUNGS FILLING WITH FLUID, COUGH Time Seen by Provider: 09/10/25 08:36 History of Present Illness Maximum Pain Intensity: 6 This is a 55-year-old male who presents to the emergency department via private vehicle with complaints of "cannot breathe, cough". History obtained from patient and at bedside. The patient notes history of pneumonia requiring intubation and hospitalization in October 2023, seen at [facility]. Patient notes he was on supplemental O2 for several months, but recently has not been requiring oxygen at baseline. However, beginning a few days ago on 09/08/2025 began with a cough, orthopnea, and feeling like his lungs are filling with fluid. He feels similar to when he had pneumonia in 2023. He denies any history of PE but does note history of SVT. No fever. Cough is productive of a thick white sputum. No hemoptysis. Current pain 6/10 in the chest with a cough. No pain at rest. Home Medications Medication Instructions Recorded Confirmed Type sertraline 50 mg tablet 50 mg PO QPM 01/24/23 08/22/25 History folic acid 1 mg tablet 1 mg PO DAILY 11/18/23 08/22/25 History multivitamin 1 tab PO DAILY 11/18/23 08/22/25 History pantoprazole 40 mg tablet,delayed 40 mg PO DAILY 11/18/23 08/22/25 History release potassium chloride 20 mEq 20 meq PO BID #180 tabs 11/18/23 08/22/25 Rx tablet,extended release thiamine HCl (vitamin B1) 100 mg 100 mg PO DAILY 11/18/23 08/22/25 History tablet tamsulosin 0.4 mg capsule 0.4 mg PO DAILY #90 caps 10/06/24 08/22/25 Rx tirzepatide 12.5 mg/0.5 mL mg subcut 10/06/24 08/22/25 History subcutaneous pen injector (Russellunlance) metoprolol succinate 25 mg 50 mg (2 x 25 mg) PO DAILY #180 02/04/25 08/22/25 Rx tablet,extended release 24 hr tabs testosterone 20.25 mg topical DAILY #75 grams 02/15/25 08/22/25 Rx dapagliflozin propanediol 10 mg 10 mg PO DAILY #90 tabs 04/15/25 08/22/25 Rx tablet (Farxiga) torsemide 20 mg tablet 20 mg PO QID PRN edema #120 tabs 04/26/25 08/22/25 Rx evolocumab 140 mg/mL subcutaneous 140 mg subcut .every 2 weeks #6 mL 04/28/25 08/22/25 Rx pen injector (Camila Sandra) rosuvastatin 40 mg tablet 40 mg PO QPM #90 tabs 05/26/25 08/22/25 Rx tadalafil 20 mg tablet 20 mg PO DAILY PRN sexual activity 06/22/25 08/22/25 Rx #30 tabs testosterone 12.5 mg/1.25 gram per 4 pump transdermal DAILY #150 grams 08/09/25 08/22/25 Rx pump actuation (1%) transdermal gel albuterol sulfate 90 mcg/actuation 2 puff inhalation Q6H PRN 08/22/25 08/22/25 Rx aerosol inhaler Shortness Of Breath Or Wheezing #8.5 grams Allergies Allergy/AdvReac Type Severity Reaction Status Date / Time No Known Allergies Allergy Verified 08/22/25 10:55 Past Med/Surg History Problem List (Updated 09/10/25 @ 11:28 by Robert Garcia PA-C) Rhinovirus infection (Acute) Hypoxia (Acute) Bronchitis (Acute) Dyspnea (Acute) S/P ablation of atrial flutter Hypogonadism Screening PSA (prostate specific antigen) BPH (benign prostatic hyperplasia) Erectile dysfunction Edema PSVT (paroxysmal supraventricular tachycardia) Patent foramen ovale Mitral regurgitation Encounter for pre-operative examination Hyperlipidemia Hypertension Transaminitis Elevated troponin Alcohol abuse (Acute) Lumbar stenosis with neurogenic claudication (Acute) Obesity Atrial flutter (Acute) Medical History No pertinent family history Alcohol use disorder Surgical History No pertinent past surgical history Social History Smoking Status: Never smoker Second Hand Exposure: No; Do You Dip or Chew Tobacco: Yes; Hx Alcohol Use: No Hx Substance Use: No Preferred Language: Azeri Communication Ability: Effective Crisis Intervention Counselor Required: No Beliefs That Will Affect Care: None Current Living Situation: Spouse Feels Safe at Home: Yes Assistive Devices: None Review of Systems A total of 10 systems reviewed and were otherwise negative Physical Exam Vital Signs Vital Signs - 24 hr 09/10/25 08:30 09/10/25 09:14 09/10/25 10:31 Temperature 36.7 C Temperature Source Temporal Artery Scan Pulse Rate 81 Pulse Rate from SpO2 Sensor 77 Respiratory Rate 22 15 Respiratory Effort / Characteristics Non-Labored Spontaneous Respiratory Depth Normal Respiratory Pattern Regular Blood Pressure 152/76 H 130/78 Blood Pressure Mean 101 95 Pulse Oximetry 90 89 L 92 Oxygen Delivery Method Room Air Nasal Cannula Nasal Cannula Oxygen Flow Rate 0 3 Sepsis Recent Fever Within 48 Hours No Sepsis New/Unexplained Change in Mental Status N/A Sepsis Action Taken by Nursing No Action Required Oxygen Flow Rate - Titration 3 Pulse Oximetry Post Tiitration 94 09/10/25 11:00 Temperature Temperature Source Pulse Rate 81 Pulse Rate from SpO2 Sensor 79 Respiratory Rate 18 Respiratory Effort / Characteristics Respiratory Depth Respiratory Pattern Blood Pressure 129/78 Blood Pressure Mean 95 Pulse Oximetry 92 Oxygen Delivery Method Nasal Cannula Oxygen Flow Rate 3 Sepsis Recent Fever Within 48 Hours Sepsis New/Unexplained Change in Mental Status Sepsis Action Taken by Nursing Oxygen Flow Rate - Titration Pulse Oximetry Post Tiitration VITAL SIGNS - Vital signs and nursing notes were reviewed. Stable and afebrile. GENERAL - 55-year-old male appearing his stated age who is in no acute distress. Communicates well with provider and answers questions appropriately. SKIN - Without rashes. No meningeal or petechial rash. HEAD - NC/AT. EYES - PERRL with EOMI bilaterally. Sclera anicteric. EARS - No deformities of external structures noted on gross examination bilaterally. NOSE - Midline and without cyanosis. No epistaxis or purulent drainage noted. MOUTH/OROPHARYNX - Without perioral cyanosis. Buccal mucosa pink and moist and without leukoplakia. Tongue midline with equal elevation of palate bilaterally. No tonsillar hypertrophy, erythema, or exudates noted. Good dentition noted. NECK - Neck with FROM. No nuchal rigidity. LUNGS -bilateral wheezing left greater than right. CARDIAC - RRR ABDOMEN - Abdominal contour normal without pulsations or visible masses. BS normoactive all four quadrants. No tenderness, palpable masses, hepatosplenomegaly, or ascites noted. EXTREMITIES - No clubbing or peripheral cyanosis.+5/5 strength noted in UE/LE bilaterally. NEUROLOGIC - Cranial nerves II through XII grossly intact. PSYCH -alert, oriented and pleasant on exam. Course Administered Medications Potassium Chloride (K Wojciech / Wtr) 10 meq in 100 mls @ 100 mls/hr IV Q1H NIKKY Stop: 09/10/25 11:59 Last Infusion: 09/10/25 11:20 Dose: Infused Documented By: Admin: 09/10/25 10:06 Dose: 100 mls/hr Documented By: ARPITA Discontinued Medications Albuterol (Albut/Ipratrop 3mg/0.5mg Neb 3 Ml Vial) 3 ml NEB NOW STA; Protocol Stop: 09/10/25 09:55 Last Admin: 09/10/25 10:06 Dose: 3 ml Documented By: ARPITA Piperacillin Sod/Tazobactam Sod (Zosyn) 4.5 gm in 100 mls @ 200 mls/hr IV NOW ONE; Protocol Stop: 09/10/25 09:20 Last Infusion: 09/10/25 10:17 Dose: Infused Documented By: Admin: 09/10/25 09:10 Dose: 200 mls/hr Documented By: ARPITA Magnesium Sulfate/Dextrose (Magnesium Sulfate / D5w) 1 gm in 100 mls @ 100 mls/hr IV NOW STA Stop: 09/10/25 10:49 Last Infusion: 09/10/25 11:20 Dose: Infused Documented By: Admin: 09/10/25 10:06 Dose: 100 mls/hr Documented By: ARPITA Ioversol (Optiray 320 125ml) 90 ml IV ONCE ONE Stop: 09/10/25 09:53 Last Admin: 09/10/25 09:53 Dose: 90 ml Documented By: JOMAR Medical Decision Making Laboratory Data 09/10/25 08:58 09/10/25 08:58 Lab Results 09/10/25 09/10/25 09/10/25 Range/Units 08:58 09:08 09:09 WBC 10.36 (4.8-10.8) K/ul RBC 4.91 (4.70-6.10) M/uL Hgb 15.6 (14.0-18.0) g/dL POC Hgb (14.0-18.0) g/dl Hct 44.4 (42.0-52.0) % POC Hct (42-52) % MCV 90.4 (80.0-100.0) fL MCH 31.8 (25.0-34.0) pg MCHC 35.1 (32.0-36.0) g/dL RDW Std Deviation 44.0 (36.4-46.3) fL RDW Coeff of Anselmo 13.3 (11.5-14.5) % Plt Count 251 (130-400) K/uL MPV 10.8 (9.4-12.4) fL Immature Gran % (Auto) 0.4 % Neut % (Auto) 80.2 % Lymph % (Auto) 7.1 % Gosper % (Auto) 6.6 % Eos % (Auto) 5.2 % Baso % (Auto) 0.5 % Neut # (Auto) 8.31 H (1.40-6.50) K/uL Lymph # (Auto) 0.74 L (1.20-3.40) K/uL Gosper # (Auto) 0.68 H (0.11-0.59) K/uL Eos # (Auto) 0.54 H (0.00-0.50) K/uL Baso # (Auto) 0.05 (0.00-0.20) K/uL Immature Gran # (Auto) 0.04 (0.01-0.20) K/uL PT 10.8 (9.0-12.0) Seconds INR 1.0 (0.9-1.1) APTT 31 (21-31) Seconds PTT Ratio 1.1 VBG pH 7.49 H (7.36-7.41) VBG pCO2 48 (38-50) mmHg VBG pO2 62 mmHg VBG HCO3 37 mmol/L VBG O2 Saturation 92.7 % VBG Base Excess 11.3 mEq/L POC Sodium (135-144) mmol/L Sodium 137 (136-145) mmol/L POC Potassium (3.3-5.0) mmol/L Potassium 3.1 L (3.5-5.1) mmol/L POC Chloride (101-112) mmol/L Chloride 91 L (98-107) mmol/L Carbon Dioxide 34 H (21-32) mmol/L POC Total CO2 (24-31) mmol/L Anion Gap 12 H (3-11) POC Anion Gap (16-25) mmol/L POC BUN (7-18) mg/dl BUN 13 (6-23) mg/dl Creatinine 1.01 (0.6-1.4) mg/dl POC Creatinine (0.6-1.3) mg/dl Est Cr Clr Drug Dosing 130.2 ml/min eGFR 87.83 BUN/Creatinine Ratio 12.9 (10-20) Glucose 101 H (70-99(Fasting)) mg/dl POC Glucose (other) (70-99) mg/dl Lactate 1.3 (0.4-2.0) mmol/L Calcium 8.2 L (8.6-10.3) mg/dl POC Ioniz Calcium Chino (1.12-1.32) mmol/l Magnesium 1.6 L (1.7-2.4) mg/dl Total Bilirubin 0.8 (0.2-1.0) mg/dl AST 37 (13-39) U/L ALT 28 (7-52) U/L Alkaline Phosphatase 83 (34-104) U/L Troponin I High Sens 13.0 (0-20) pg/ml B-Natriuretic Peptide 22 (0-100) pg/ml Total Protein 7.8 (6.0-8.3) gm/dl Albumin 4.3 (3.4-5.0) gm/dl Globulin 3.5 (2.5-4.0) gm/dl Albumin/Globulin Ratio 1.2 (0.9-2) Lipase 27 (11-82) U/L Procalcitonin 0.15 (0-0.5) ng/ml TSH 2.973 (0.300-4.500) uIu/ml Nasal Screen MRSA (PCR) Negative (Negative) Adenovirus (PCR) (NotDetected) B. pertussis DNA (PCR) (NotDetected) B.parapertussis DNA PCR (NotDetected) C. pneumoniae DNA (PCR) (NotDetected) Coronavirus OC43 (PCR) (NotDetected) Coronavirus HKU1 (PCR) (NotDetected) Coronavirus 229E (PCR) (NotDetected) SARS-CoV-2 (PCR) (NotDetected) Coronavirus NL63 (PCR) (NotDetected) Human Metapneumovir PCR (NotDetected) Influenza Type A (PCR) (NotDetected) Influenza Type B (PCR) (NotDetected) M. pneumoniae (PCR) (NotDetected) Parainfluenza 1 (PCR) (NotDetected) Parainfluenza 2 (PCR) (NotDetected) Parainfluenza 3 (PCR) (NotDetected) Parainfluenza 4 (PCR) (NotDetected) RSV (PCR) (NotDetected) Entero/Rhino (PCR) (NotDetected) 09/10/25 09/10/25 Range/Units 09:10 09:13 WBC (4.8-10.8) K/ul RBC (4.70-6.10) M/uL Hgb (14.0-18.0) g/dL POC Hgb 16.0 (14.0-18.0) g/dl Hct (42.0-52.0) % POC Hct 47 (42-52) % MCV (80.0-100.0) fL MCH (25.0-34.0) pg MCHC (32.0-36.0) g/dL RDW Std Deviation (36.4-46.3) fL RDW Coeff of Anselmo (11.5-14.5) % Plt Count (130-400) K/uL MPV (9.4-12.4) fL Immature Gran % (Auto) % Neut % (Auto) % Lymph % (Auto) % Gosper % (Auto) % Eos % (Auto) % Baso % (Auto) % Neut # (Auto) (1.40-6.50) K/uL Lymph # (Auto) (1.20-3.40) K/uL Gosper # (Auto) (0.11-0.59) K/uL Eos # (Auto) (0.00-0.50) K/uL Baso # (Auto) (0.00-0.20) K/uL Immature Gran # (Auto) (0.01-0.20) K/uL PT (9.0-12.0) Seconds INR (0.9-1.1) APTT (21-31) Seconds PTT Ratio VBG pH (7.36-7.41) VBG pCO2 (38-50) mmHg VBG pO2 mmHg VBG HCO3 mmol/L VBG O2 Saturation % VBG Base Excess mEq/L POC Sodium 135 (135-144) mmol/L Sodium (136-145) mmol/L POC Potassium 3.2 L (3.3-5.0) mmol/L Potassium (3.5-5.1) mmol/L POC Chloride 90 L (101-112) mmol/L Chloride (98-107) mmol/L Carbon Dioxide (21-32) mmol/L POC Total CO2 34 H (24-31) mmol/L Anion Gap (3-11) POC Anion Gap 15.0 L (16-25) mmol/L POC BUN 14 (7-18) mg/dl BUN (6-23) mg/dl Creatinine (0.6-1.4) mg/dl POC Creatinine 1.1 (0.6-1.3) mg/dl Est Cr Clr Drug Dosing ml/min eGFR BUN/Creatinine Ratio (10-20) Glucose (70-99(Fasting)) mg/dl POC Glucose (other) 100 H (70-99) mg/dl Lactate (0.4-2.0) mmol/L Calcium (8.6-10.3) mg/dl POC Ioniz Calcium [place] 0.95 L (1.12-1.32) mmol/l Magnesium (1.7-2.4) mg/dl Total Bilirubin (0.2-1.0) mg/dl AST (13-39) U/L ALT (7-52) U/L Alkaline Phosphatase (34-104) U/L Troponin I High Sens (0-20) pg/ml B-Natriuretic Peptide (0-100) pg/ml Total Protein (6.0-8.3) gm/dl Albumin (3.4-5.0) gm/dl Globulin (2.5-4.0) gm/dl Albumin/Globulin Ratio (0.9-2) Lipase (11-82) U/L Procalcitonin (0-0.5) ng/ml TSH (0.300-4.500) uIu/ml Nasal Screen MRSA (PCR) (Negative) Adenovirus (PCR) Not Detected (NotDetected) B. pertussis DNA (PCR) Not Detected (NotDetected) B.parapertussis DNA PCR Not Detected (NotDetected) C. pneumoniae DNA (PCR) Not Detected (NotDetected) Coronavirus OC43 (PCR) Not Detected (NotDetected) Coronavirus HKU1 (PCR) Not Detected (NotDetected) Coronavirus 229E (PCR) Not Detected (NotDetected) SARS-CoV-2 (PCR) Not Detected (NotDetected) Coronavirus NL63 (PCR) Not Detected (NotDetected) Human Metapneumovir PCR Not Detected (NotDetected) Influenza Type A (PCR) Not Detected (NotDetected) Influenza Type B (PCR) Not Detected (NotDetected) M. pneumoniae (PCR) Not Detected (NotDetected) Parainfluenza 1 (PCR) Not Detected (NotDetected) Parainfluenza 2 (PCR) Not Detected (NotDetected) Parainfluenza 3 (PCR) Not Detected (NotDetected) Parainfluenza 4 (PCR) Not Detected (NotDetected) RSV (PCR) Not Detected (NotDetected) Entero/Rhino (PCR) DETECTED A (NotDetected) Imaging Data Radiologist's Impression: Chest CTA 09/10/25 08:48 CT angio chest PE protocol CT DOSE: 1024.93 mGy.cm HISTORY: dyspnea. TECHNIQUE: Multiple CTA images of the chest were obtained after the intravenous administration of 90 ml Optiray. Coronal and sagittal MIPS were obtained from the axial data set and were submitted for review. All measurements were obtained according to NASCET criteria. A dose lowering technique was utilized adhering to the principles of ALARA. COMPARISON STUDY: None. FINDINGS: There is bronchial wall thickening consistent with bronchitis. There is no pulmonary consolidation or pleural effusion. No pneumothorax. No evidence of interstitial lung disease. There is a calcified granuloma at the right mid lung. There is mild mediastinal and hilar adenopathy with largest lymph node in a right hilar node measuring 3 cm greatest dimension. No pericardial effusion. There are mild diffuse degenerative changes at the thoracic spine. IMPRESSION: 1. No pulmonary embolism or pneumonia. 2. Bronchial wall thickening suggesting bronchitis. 3. Mild mediastinal and hilar adenopathy. Likely differential diagnosis includes sarcoid and infectious/inflammatory. Cannot exclude other etiologies. At a minimum, recommend follow-up chest CT in 6 months to make sure this is not progressive. ACT 112: Positive. There are findings on this exam that require communication between the performing entity and the patient following Patient Test Result Information Act ([place] Act 112) guidelines. The above report was generated using voice recognition software. It may contain grammatical, syntax or spelling errors. Electronically signed by: Mukul Paige M.D. 09/10/2025 10:11 AM Chest X-Ray 09/10/25 08:48 XR chest 1V portable CLINICAL HISTORY: dyspnea COMPARISON STUDY: 01/24/2023 FINDINGS: Stable mild cardiomegaly without pulmonary vascular congestion. No consolidation or pleural effusion seen. No pneumothorax. IMPRESSION: No acute findings. ACT 112: Negative or not required by law. Electronically signed by: Mukul Paige M.D. 09/10/2025 9:03 AM [facility] Narrative Patient was seen and evaluated as above in room A04b. Review was performed of triage nursing notes and vital signs. I did review pertinent previous visits and patient history. After obtaining a thorough history and physical examination the above work up was performed. Patient presents to us today with dyspnea. On my assessment he does yield overall stable vital signs, although RN at bedside did note patient was hypoxic in the high 80s initially. Currently on O2 nasal cannula. He is sitting upright but no tripoding. No drooling, stridor, trismus. Normal phonation. He is speaking in full sentences but is dyspnic on evaluation. Wheezing noted bilat. EKG per my interpretation reveals normal sinus rhythm at a rate of 77 bpm. QTc 473. QRS 94. No ST elevation. Options of care were discussed with the patient. IV access was established. Labs are drawn. Empiric IV antibiotics were ordered over concern and suspicion for pneumonia and noting patient reported history and presentation. There is no leukocytosis or concerning anemia. Coags normal. VBG pH 7.49 with a CO2 of 48. There is hypokalemia and hypomagnesemia. No evidence of emergent kidney or liver failure. There is hypocalcemia 8.2. Lactate normal. Pro-Trent normal. Troponin and BNP are both within normal range. TSH was euthyroid state. MRSA nasal screen negative. BioFire panel positive for rhinovirus. Chest x-ray as above and I did complement this with a CT of the chest noting the patient symptoms and hypoxia on presentation. Results as above. No PE. No pneumonia. There is some bronchial wall thickening suggesting bronchitis. There is also some lymphadenopathy. Of note, he is requiring supplemental O2 via nasal cannula 3 L to maintain normal O2 sats. I do believe that further evaluation and management inpatient setting is warranted. Case discussed with the hospitalist service. Please refer to further documentation regarding his stay. GCS: 15 In the evaluation and treatment of this patient the following differential diagnoses were entertained: AR, PE, pericarditis, costochondritis, pneumothorax, among others. Impression & Plan Dyspnea, Bronchitis, Hypoxia, Rhinovirus infection Discharge Plan Visit Data Chief Complaint: Respiratory Problems Stated Complaint: CANNOT BREATH, LUNGS FILLING WITH FLUID, COUGH ED Provider: Luc Oseguera ED Midlevel Provider: Robert Garcia Discharge Problem: Dyspnea, Bronchitis, Hypoxia, Rhinovirus infection Patient Disposition: Admitted As Inpatient Condition: Good Forms Stand Alone Forms: My [facility] [employer] Prescriptions Prescriptions: No Action metoprolol succinate 25 mg tablet extended release 24 hr 50 mg PO DAILY Qty: 180 3RF dapagliflozin propanediol [Farxiga] 10 mg tablet 10 mg PO DAILY Qty: 90 3RF torsemide 20 mg tablet 20 mg PO QID PRN (Reason: edema) Qty: 120 5RF Repatha SureClick 140 mg/mL pen injector 140 mg subcut .every 2 weeks Qty: 6 3RF rosuvastatin 40 mg tablet 40 mg PO QPM Qty: 90 3RF tadalafil 20 mg tablet 20 mg PO DAILY PRN (Reason: sexual activity) Qty: 30 3RF testosterone 12.5 mg/ 1.25 gram (1 %) gel in metered-dose pump 4 pump transdermal DAILY Qty: 150 0RF Mounjaro 12.5 mg/0.5 mL pen injector subcut tamsulosin 0.4 mg capsule 0.4 mg PO DAILY Qty: 90 3RF testosterone 20.25 mg/1.25 gram (1.62 %) gel in metered-dose pump 20.25 mg topical DAILY Qty: 75 0RF Rx Instructions: apply 1 pump amount over max area of ONE upper arm and shoulder albuterol sulfate 90 mcg/actuation HFA aerosol inhaler 2 puff inhalation Q6H PRN (Reason: Shortness Of Breath Or Wheezing) Qty: 8.5 11RF folic acid 1 mg tablet 1 mg PO DAILY multivitamin Tablet 1 tab PO DAILY pantoprazole 40 mg tablet,delayed release (DR/EC) 40 mg PO DAILY thiamine HCl (vitamin B1) 100 mg tablet 100 mg PO DAILY potassium chloride 20 mEq tablet extended release 20 meq PO BID Qty: 180 3RF sertraline 50 mg tablet 50 mg PO QPM Referrals Referrals: Srikanth Womack [Primary Care Provider] -
--- NOTE | 2025-09-10 09:04 | XRay Report ---
XR chest 1V portable CLINICAL HISTORY: dyspnea COMPARISON STUDY: 01/24/2023 FINDINGS: Stable mild cardiomegaly without pulmonary vascular congestion. No consolidation or pleural effusion seen. No pneumothorax. IMPRESSION: No acute findings. ACT 112: Negative or not required by law. Electronically signed by: Mukul Paige M.D. 09/10/2025 9:03 AM
[2025-09-10] MEDS: PIPERACILLIN/TAZOBACTAM 4.5 GM/100 ML BAG IV ONE (09:10)
[2025-09-10 09:24] LABS: Base Excess VBG 11.3 mEq/L; HCO3 VBG 37 mmol/L; Oxygen Saturation VBG 92.7 %; PCO2 VBG 48 mmHg (38-50); PO2 VBG 62 mmHg; pH VBG 7.49 (7.36-7.41)
[2025-09-10 09:30] LABS: Hematocrit (blood only) 44.4 % (42.0-52.0); Hemoglobin 15.6 g/dL (14.0-18.0); Immature Granulocytes # (auto) 0.04 K/uL (0.01-0.20); Immature Granulocytes % (auto) 0.4 %; Mean Corpuscular Hemoglobin 31.8 pg (25.0-34.0); Mean Corpuscular Volume 90.4 fL (80.0-100.0); Platelet Count 251 K/uL (130-400); RDW Standard Deviation 44.0 fL (36.4-46.3); Red Blood Count 4.91 M/uL (4.70-6.10); White Blood Count 10.36 K/ul (4.8-10.8)
[2025-09-10 09:48] LABS: Alanine Aminotransferase 28.0 U/L (7-52); Albumin Globulin Ratio 1.2 (0.9-2); Albumin Level 4.3 gm/dl (3.4-5.0); Alkaline Phosphatase 83.0 U/L (34-104); Anion Gap 12.0 (3-11); Bilirubin,Total 0.8 mg/dl (0.2-1.0); Blood Urea Nitrogen 13.0 mg/dl (6-23); Calcium 8.2 mg/dl (8.6-10.3); Carbon Dioxide 34.0 mmol/L (21-32); Chloride 91.0 mmol/L (98-107); Creatinine Clr Calc Pharmacy 130.2 ml/min; Globulin 3.5 gm/dl (2.5-4.0); Glucose 101.0 mg/dl (70-99(Fasting)); Lipase 27.0 U/L (11-82); Magnesium 1.6 mg/dl (1.7-2.4); Potassium 3.1 mmol/L (3.5-5.1); Sodium 137.0 mmol/L (136-145); Total Protein 7.8 gm/dl (6.0-8.3)
[2025-09-10] MEDS: OPTIRAY 320 125ml IV ONE (09:53)
[2025-09-10 10:00] LABS: INR 1.0 (0.9-1.1); Partial Thromboplastin Time 31 Seconds (21-31); Prothrombin Time 10.8 Seconds (9.0-12.0)
[2025-09-10 10:02] LABS: Thyroid Stimulating Hormone 2.973 uIu/ml (0.300-4.500)
[2025-09-10] MEDS: POTASSIUM CHLORIDE / WTR 10 MEQ/100 ML PLCT IV SCH (10:06)
[2025-09-10] MEDS: ALBUT/IPRATROP 3MG/0.5MG NEB 3 ML VIAL NEB STA (10:06)
[2025-09-10] MEDS: MAGNESIUM SULFATE / D5W 1 GM/100 ML BAG IV STA (10:06)
--- NOTE | 2025-09-10 10:13 | CT Scan Report ---
CT angio chest PE protocol CT DOSE: 1024.93 mGy.cm HISTORY: dyspnea. TECHNIQUE: Multiple CTA images of the chest were obtained after the intravenous administration of 90 ml Optiray. Coronal and sagittal MIPS were obtained from the axial data set and were submitted for r [id number]. All measurements were obtained according to NASCET criteria. A dose lowering technique was ut ilized adhering to the principles of ALARA. COMPARISON STUDY: None. FINDINGS: There is bronchial wall thickening consistent with bronchitis. There is no pulmonary consol idation or pleural effusion. No pneumothorax. No evidence of interstitial lung disease. There is a ca lcified granuloma at the right mid lung. There is mild mediastinal and hilar adenopathy with largest lymph node in a right hilar node measuring 3 cm greatest dimension. No pericardial effusion. There ar e mild diffuse degenerative changes at the thoracic spine. IMPRESSION: 1. No pulmonary embolism or pneumonia. 2. Bronchial wall thickening suggesting bronchitis. 3. Mild mediastinal and hilar adenopathy. Likely differential diagnosis includes sarcoid and infectio us/inflammatory. Cannot exclude other etiologies. At a minimum, recommend follow-up chest CT in 6 mon ths to make sure this is not progressive. ACT 112: Positive. There are findings on this exam that require communication between the performing entity and the patient following Patient Test Result Information Act ([place] Act 112) guidelines. The above report was generated using voice recognition software. It may contain grammatical, syntax o r spelling errors. Electronically signed by: Mukul Paige M.D. 09/10/2025 10:11 AM
[2025-09-10 10:23] LABS: Chlamydia pneumoniae PCR Not Detected (NotDetected); Coronavirus 229E PCR Not Detected (NotDetected); Coronavirus CoV-2 (COVID19)PCR Not Detected (NotDetected); Coronavirus HKU1 PCR Not Detected (NotDetected); Coronavirus NL63 PCR Not Detected (NotDetected); Coronavirus OC43PCR Not Detected (NotDetected); Human Metapneumovirus PCR Not Detected (NotDetected); Parainfluenza Virus 1 PCR Not Detected (NotDetected); Parainfluenza Virus 2 PCR Not Detected (NotDetected); Parainfluenza Virus 3 PCR Not Detected (NotDetected); Parainfluenza Virus 4 PCR Not Detected (NotDetected); Respiratory Syncytial VirusPCR Not Detected (NotDetected); Rhinovirus/Enterovirus PCR DETECTED (NotDetected)
[2025-09-10] MEDS ORDERED: ACETAMINOPHEN 325 MG TAB PO PRN (10:42)
[2025-09-10] MEDS ORDERED: ONDANSETRON INJ 2 MG/ML 2 ML VIAL IV PRN (10:42)
[2025-09-10] MEDS ORDERED: POLYETHYLENE (MIRALAX) 17 GM PACK PO PRN (10:42)
--- NOTE | 2025-09-10 10:49 | History & Physical Report ---
"<Statement entered by Linda Garcia MD - 09/10/25 18:36> I have reviewed vital signs, chart notes, labs and imaging. I have personally seen, evaluated and examined the patient. I have also discussed the management of the patient with the DEMETRA and I agree with the exam findings documented in the history and physical examination and the documented assessment and plan unless otherwise stated below. When I saw him he says breathing significantly improved compared to on arrival to ED On exam mildly increased WOB, musical wheezing throughout, goot air mvt. 2-3+ LE edema Date of Service September 10, 2025 Assessment & Plan (1) Rhinovirus infection: (2) Bronchitis: (3) Mitral regurgitation: (4) Hypertension: (5) Hyperlipidemia: Plan This is a 55 year old male with PMHx of hypogonadism, PSVT, mitral regurg, HTN, HLD, A flutter who presented to the ED on 09/10/25 secondary for SOB and cough. While in the ED, his CXR was negative, Chest CTA negative for PE but did show bronchitis. CBC was without leukocytosis. Renal function stable but electrolytes with slightly decreased K of 3.1 & Mag of 1.6. His Procal was negative, TSH WNL, trop neg, BNP WNL. Blood cultures & Sputum cultures pending. He was given KCl, Mag, IV Zosyn, a Duoneb in ED. He was also hypoxic in high 80% and placed on 3L of oxygen w/ improvement of SOB. 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 Has hx of pneumonia resulting in ventilation in 2023. CXR negative; Chest CTA neg for PE but did reveal bronchitis. CBC w/o leukocytosis. Procal, BNP, Trop all negative. TSH WNL. Blood cultures/Sputum Cultures pending s/p Zosyn, continue on admission. Start IV Solu-medrol & continue BID Continue Duonebs scheduled q6h Incentive spirometry & Flutter valve O2 prn to obtain oxygen > 90%; currently on 3L, wean when able. #Mitral Regurg | Atrial flutter | HTN | HLD not on anticoagulation at baseline. Follows w/ cardiology, recently seen 08/22/2025. Hold Farxiga while hospitalizated. Continue Metoprolol, Statin, Toresmide + KCl daily. Monitor on tele. #GERD - PPI #Mental health - Zoloft #BPH - follows w/ urology, Flomax #Obesity - BMI 43.9, hold Tirzepatide while inpatient. DVT prophylaxis: Lovenox Code: full Case was discussed with Dr. Garcia & updated at time of admission. History of Present Illness Primary Care Provider: Srikanth Womack This is a 55 year old male with PMHx of hypogonadism, PSVT, mitral regurg, HTN, HLD, A flutter who presented to the ED on 09/10/25 secondary for SOB and cough. Juan C was seen & examined with his at bedside. Reports his symptoms started on 09/08 and have been progressing. reports shortness of breath, cough, and chest pain w/ coughing. Reports no chest pain at rest/exertion. Does report SOB is worse with exertion. Reports mild LE edema which is baseline for him. Denies fevers or chills. Denies any abdominal pain, nausea, changes in bowels bladder. Did have an episode of vomiting secondary to coughing but denies any further episodes. States he was hospitalized in ICU on ventilator at [facility] last winter for pneumonia but does note he came to the hospital earlier in his illness this time. He reports he did not take his AM medications prior to coming in today. While in the ED, his CXR was negative, Chest CTA negative for PE but did show bronchitis. CBC was without leukocytosis. Renal function stable but electrolytes with slightly decreased K of 3.1 & Mag of 1.6. His Procal was negative, TSH WNL, trop neg, BNP WNL. Blood cultures & Sputum cultures pending. He was given KCl, Mag, IV Zosyn, a Duoneb in ED. He was also hypoxic in high 80% and placed on 3L of oxygen w/ improvement of SOB. Code discussion did take place & he does confirm that he is a full code. Allergies Allergy/AdvReac Type Severity Reaction Status Date / Time No Known Allergies Allergy Verified 08/22/25 10:55 Home Medications Medication Instructions Recorded Confirmed Type sertraline 50 mg tablet 50 mg PO QPM 01/24/23 08/22/25 History folic acid 1 mg tablet 1 mg PO DAILY 11/18/23 08/22/25 History multivitamin 1 tab PO DAILY 11/18/23 08/22/25 History pantoprazole 40 mg tablet,delayed 40 mg PO DAILY 11/18/23 08/22/25 History release potassium chloride 20 mEq 20 meq PO BID #180 tabs 11/18/23 08/22/25 Rx tablet,extended release thiamine HCl (vitamin B1) 100 mg 100 mg PO DAILY 11/18/23 08/22/25 History tablet tamsulosin 0.4 mg capsule 0.4 mg PO DAILY #90 caps 10/06/24 08/22/25 Rx tirzepatide 12.5 mg/0.5 mL mg subcut 10/06/24 08/22/25 History subcutaneous pen injector (Nina) metoprolol succinate 25 mg 50 mg (2 x 25 mg) PO DAILY #180 02/04/25 08/22/25 Rx tablet,extended release 24 hr tabs testosterone 20.25 mg topical DAILY #75 grams 02/15/25 08/22/25 Rx dapagliflozin propanediol 10 mg 10 mg PO DAILY #90 tabs 04/15/25 08/22/25 Rx tablet ([place]) torsemide 20 mg tablet 20 mg PO QID PRN edema #120 tabs 04/26/25 08/22/25 Rx evolocumab 140 mg/mL subcutaneous 140 mg subcut .every 2 weeks #6 mL 04/28/25 08/22/25 Rx pen injector (Camila Sandra) rosuvastatin 40 mg tablet 40 mg PO QPM #90 tabs 05/26/25 08/22/25 Rx tadalafil 20 mg tablet 20 mg PO DAILY PRN sexual activity 06/22/25 08/22/25 Rx #30 tabs testosterone 12.5 mg/1.25 gram per 4 pump transdermal DAILY #150 grams 08/09/25 08/22/25 Rx pump actuation (1%) transdermal gel albuterol sulfate 90 mcg/actuation 2 puff inhalation Q6H PRN 08/22/25 08/22/25 Rx aerosol inhaler Shortness Of Breath Or Wheezing #8.5 grams Past Med/Surg History Problem List (Updated 09/10/25 @ 11:28 by Robert Garcia PA-C) Rhinovirus infection (Acute) Hypoxia (Acute) Bronchitis (Acute) Dyspnea (Acute) S/P ablation of atrial flutter Hypogonadism Screening PSA (prostate specific antigen) BPH (benign prostatic hyperplasia) Erectile dysfunction Edema PSVT (paroxysmal supraventricular tachycardia) Patent foramen ovale Mitral regurgitation Encounter for pre-operative examination Hyperlipidemia Hypertension Transaminitis Elevated troponin Alcohol abuse (Acute) Lumbar stenosis with neurogenic claudication (Acute) Obesity Atrial flutter (Acute) Medical History No pertinent family history Alcohol use disorder Surgical History No pertinent past surgical history Social History Smoking Status: Never smoker Second Hand Exposure: No; Do You Dip or Chew Tobacco: Yes; Hx Alcohol Use: No Hx Substance Use: No Preferred Language: Kiswahili Communication Ability: Effective Back Line Cook Required: No Beliefs That Will Affect Care: None Current Living Situation: Spouse Feels Safe at Home: Yes Assistive Devices: None Physical Exam Physical Exam: General: NAD, VS: BP 153/91; P81; R18; T36.7C Resp: normal respiratory effort, lungs w/ b/l wheezing in all lung engel. CV: RRR, no murmur, Abd: normal bowel sounds, non tender, soft Extremities: Moves all extremities, 1+ edema b/l Neuro: A&O x3, Skin: intact, no lesions noted Results & Data Results & Data Vital Signs (Past 12 Hours) Vital Signs Temp Pulse Resp BP Pulse Ox O2 Del Method O2 Flow Rate 09/10/25 09:14 89 L Nasal Cannula 0 09/10/25 08:30 36.7 C 81 22 152/76 H 90 Room Air PG Care Time/CCT Total # of Minutes Spent Total Time Spent with Patient: Total time spent is greater than 50% in coordination of care (as documented) at patient's floor/unit and/or counseling patient: Coding Level of Care Code 58871 INT INP/OBS CARE 375MIN Diagnoses Rhinovirus infection B34.8 Bronchitis J40 Nonrheumatic mitral valve regurgitation I34.0 Cardiac valve disease etiology: nonrheumatic Primary hypertension I10 Hypertension type: primary hypertension Familial hypercholesterolemia E78.01 Hyperlipidemia type: familial hypercholesterolemia (3) Mitral regurgitation Cardiac valve disease etiology: nonrheumatic Qualified Code(s): I34.0 - Nonrheumatic mitral (valve) insufficiency (4) Hypertension Hypertension type: primary hypertension Qualified Code(s): I10 - Essential (primary) hypertension (5) Hyperlipidemia Hyperlipidemia type: familial hypercholesterolemia Qualified Code(s): E78.01 - Familial hypercholesterolemia"
[2025-09-10] MEDS: METOPROLOL SUCC 50MG EXT REL TAB PO STA (11:49)
[2025-09-10] MEDS: ALBUT/IPRATROP 3MG/0.5MG NEB 3 ML VIAL NEB SCH (13:08)
[2025-09-10] MEDS: SERTRALINE HCL 50 MG TABLET PO SCH (21:51)
[2025-09-10] MEDS: TAMSULOSIN HCL 0.4 MG CAP PO SCH (21:52)
[2025-09-10] MEDS: ENOXAPARIN INJ 40 MG/0.4 ML SYR SQ SCH (21:52)
[2025-09-10] MEDS: ROSUVASTATIN CALCIUM 20 MG TAB PO SCH (21:52)
[2025-09-11 06:59] LABS: Hematocrit (blood only) 42.8 % (42.0-52.0); Hemoglobin 14.7 g/dL (14.0-18.0); Mean Corpuscular Hemoglobin 31.5 pg (25.0-34.0); Mean Corpuscular Volume 91.8 fL (80.0-100.0); Platelet Count 244 K/uL (130-400); RDW Standard Deviation 44.2 fL (36.4-46.3); Red Blood Count 4.66 M/uL (4.70-6.10); White Blood Count 10.41 K/ul (4.8-10.8)
[2025-09-11 07:31] LABS: Anion Gap 10.0 (3-11); Blood Urea Nitrogen 15.0 mg/dl (6-23); Calcium 8.8 mg/dl (8.6-10.3); Carbon Dioxide 33.0 mmol/L (21-32); Chloride 94.0 mmol/L (98-107); Creatinine Clr Calc Pharmacy 161.5 ml/min; Glucose 140.0 mg/dl (70-99(Fasting)); Potassium 3.0 mmol/L (3.5-5.1); Sodium 137.0 mmol/L (136-145)
[2025-09-11 07:33] LABS: Immature Granulocytes # (auto) 0.09 K/uL (0.01-0.20); Immature Granulocytes % (auto) 0.9 %
[2025-09-11] MEDS ORDERED: POTASSIUM CHLORIDE CRTAB 20 MEQ TABCR PO SCH (09:00)
[2025-09-11] MEDS: METOPROLOL SUCC 50MG EXT REL TAB PO SCH (09:04)
[2025-09-11] MEDS: TORSEMIDE 20 MG TAB PO SCH (09:05)
[2025-09-11] MEDS: POTASSIUM CHLORIDE CRTAB 20 MEQ TABCR PO SCH (09:17)
[2025-09-11 12:27] LABS: Appearance Urine Clear (Clear); Glucose Urine UA Negative (Negative)
--- NOTE | 2025-09-11 13:18 | Hospitalist Progress Note ---
"Date of Service September 11, 2025 Assessment & Plan (1) Rhinovirus infection: (2) Bronchitis: (3) Mitral regurgitation: (4) Hypertension: (5) Hyperlipidemia: Plan This is a 55 year old male with PMHx of hypogonadism, PSVT, mitral regurg, HTN, HLD, A flutter who presented to the ED on 09/10/25 secondary for SOB and cough. 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 Has hx of pneumonia resulting in ventilation in 2023. CXR negative; Chest CTA neg for PE but did reveal bronchitis. CBC w/o leukocytosis. Procal, BNP, Trop all negative. TSH WNL. Blood cultures negative at 24 hours, Sputum culture negative. s/p Zosyn, continue on admission. Continue IV Solu-medrol BID; Continue Duonebs scheduled q6h Incentive spirometry & Flutter valve O2 prn to obtain oxygen > 90%; currently on 3L, wean when able. #Hypokalemia K low at 3.0, typically on 20meq BID daily. Increase to 40meq BID on 09/11, resume typical KCl dosing on 09/12. Monitor #Mitral Regurg | Atrial flutter | HTN | HLD not on anticoagulation at baseline. Follows w/ cardiology, recently seen 08/22/2025. Hold Farxiga while inpatient. Continue Metoprolol, Statin, Torsemide + KCl daily. Monitor on tele. #GERD - PPI #Mental health - Zoloft #BPH - follows w/ urology, Flomax #Obesity - BMI 43.9, hold Tirzepatide while inpatient. DVT prophylaxis: Lovenox Code: full Admission and Anticipated Discharge Date Admission Date: September 10, 2025 Rosanna Irizarry was seen & examined this morning. He reports he is feeling better today. Reports his SOB/cough has improved. Reports chest pain still w/ cough but denies any worsening of it. Physical Exam Physical Exam: General: NAD, VS: BP 117/70; P81; R20; T36.7C Resp: normal respiratory effort, lungs w/ wheezing in upper lungs b/l. CV: RRR, no murmur Extremities: Moves all extremities, no edema Neuro: A&O x3 Skin: intact, no lesions noted Results & Data Results & Data Vital Signs (Past 12 Hours) Vital Signs Temp Pulse Pulse Resp BP BP Pulse Ox 09/11/25 11:26 36.7 C 81 20 117/70 94 09/11/25 08:26 36.3 C L 83 20 110/64 95 09/11/25 07:00 78 18 96 09/11/25 06:53 78 09/11/25 04:07 36.7 C 88 20 139/81 95 O2 Del Method O2 Flow Rate 09/11/25 11:26 Nasal Cannula 3 09/11/25 08:26 Room Air 09/11/25 07:00 Nasal Cannula 2 09/11/25 06:53 09/11/25 04:07 Nasal Cannula 2 PG Care Time/CCT Total # of Minutes Spent Total Time Spent with Patient: Total time spent is greater than 50% in coordination of care (as documented) at patient's floor/unit and/or counseling patient: Coding Level of Care Code 77474 SUB INP/OBS CARE 2MIN Diagnoses Rhinovirus infection B34.8 Bronchitis J40 Nonrheumatic mitral valve regurgitation I34.0 Cardiac valve disease etiology: nonrheumatic Primary hypertension I10 Hypertension type: primary hypertension Familial hypercholesterolemia E78.01 Hyperlipidemia type: familial hypercholesterolemia (3) Mitral regurgitation Cardiac valve disease etiology: nonrheumatic Qualified Code(s): I34.0 - Nonrheumatic mitral (valve) insufficiency (4) Hypertension Hypertension type: primary hypertension Qualified Code(s): I10 - Essential (primary) hypertension (5) Hyperlipidemia Hyperlipidemia type: familial hypercholesterolemia Qualified Code(s): E78.01 - Familial hypercholesterolemia"
[2025-09-12 06:42] LABS: Hematocrit (blood only) 42.3 % (42.0-52.0); Hemoglobin 14.4 g/dL (14.0-18.0); Mean Corpuscular Hemoglobin 31.7 pg (25.0-34.0); Mean Corpuscular Volume 93.2 fL (80.0-100.0); Platelet Count 249 K/uL (130-400); RDW Standard Deviation 46.1 fL (36.4-46.3); Red Blood Count 4.54 M/uL (4.70-6.10); White Blood Count 12.02 K/ul (4.8-10.8)
[2025-09-12 07:08] LABS: Anion Gap 9.0 (3-11); Blood Urea Nitrogen 17.0 mg/dl (6-23); Calcium 8.5 mg/dl (8.6-10.3); Carbon Dioxide 36.0 mmol/L (21-32); Chloride 95.0 mmol/L (98-107); Creatinine Clr Calc Pharmacy 151.0 ml/min; Glucose 121.0 mg/dl (70-99(Fasting)); Potassium 3.2 mmol/L (3.5-5.1); Sodium 140.0 mmol/L (136-145)
[2025-09-12 08:17] VITALS: RESP 19
[2025-09-12] MEDS: POTASSIUM CHLORIDE CRTAB 20 MEQ TABCR PO STA (09:03)
[2025-09-12] MEDS: MAGNESIUM SULFATE / D5W 1 GM/100 ML BAG IV ONE (09:03)
[2025-09-12] MEDS: POTASSIUM CHLORIDE CRTAB 20 MEQ TABCR PO SCH (10:29)
--- NOTE | 2025-09-12 11:03 | Electrocardiogram Report ---
Test Reason : Blood Pressure : */* mmHG Vent. Rate : 77 BPM Atrial Rate : 77 BPM P-R Int : 148 ms QRS Dur : 94 ms QT Int : 418 ms P-R-T Axes : 67 -38 39 degrees QTcB Int : 473 ms Normal sinus rhythm Left axis deviation Left anterior fascicular block Abnormal ECG When compared with ECG of 15-Jan-2024 13:54, No significant change was found Confirmed by Summer Hyatt (Doroteo) on 09/12/2025 11:02:41 AM Referred By: REFERRED SELF Confirmed By: Summer Hyatt
[2025-09-12 12:26] VITALS: PULSE 77; TEMP 98.2; O2SAT 92
--- NOTE | 2025-09-12 12:45 | Discharge Summary ---
"Discharge Summary Date of Service September 12, 2025 Principal Dx & Hospital Course #1 = Principal Diagnosis (1) Rhinovirus infection: (2) Bronchitis: (3) Mitral regurgitation: (4) Hypertension: (5) Hyperlipidemia: Plan This is a 55 year old male with PMHx of hypogonadism, PSVT, mitral regurg, HTN, HLD, A flutter who presented to the ED on 09/10/25 secondary for SOB and cough. #Bronchitis | Rhinovirus symptoms began 2 days [employer]. Has hx of COVID pneumonia resulting in mechanical ventilation x7. CXR negative; Chest CTA neg for PE but did reveal bronchitis and medistinal and hilar adenopathy that its likely infection, but cannot rule out other causes and repeat chest CT recommnded in 6 months. mild leukocytosis but likely reactive to steorids. Procal, BNP, Trop all negative. TSH WNL. Has been weaned down to room air, walked with O2 hovering 87-88%. Discussed home vs additional day of IV steroids. Patient agreeable for home, has pulse ox to monitor at home. Discussed return precautions. Continue prednisone taper, IS and FV. Blood cultures negative at 48 hours, Sputum culture negative. #Hypokalemia - replaced PO throughout stay, continue home supplementation 20meq BID #Mitral Regurg | Atrial flutter | HTN | HLD - not on anticoagulation at baseline. Follows w/ cardiology, recently seen 08/22/2025. Continue Metoprolol, Statin, Torsemide + KCl daily and farxiga. #GERD - PPI #Mental health - Zoloft #BPH - follows w/ urology, Flomax #Obesity - BMI 43.9, resume Tirzepatide outpatient Dispo: discharge to home today Notes For Next Care Provider rhinovirus - weaned to room air Chest CTA neg for PE but did reveal bronchitis and mediastinal and hilar adenopathy that its likely infection, but cannot rule out other causes and repeat chest CT recommended in 6 months. Medication Changes From Visit prednisone taper Admission HPI Per Admitting Provider This is a 55 year old male with PMHx of hypogonadism, PSVT, mitral regurg, HTN, HLD, A flutter who presented to the ED on 09/10/25 secondary for SOB and cough. Juan C was seen & examined with his at bedside. Reports his symptoms started on 09/08 and have been progressing. reports shortness of breath, cough, and chest pain w/ coughing. Reports no chest pain at rest/exertion. Does report SOB is worse with exertion. Reports mild LE edema which is baseline for him. Denies fevers or chills. Denies any abdominal pain, nausea, changes in bowels bladder. Did have an episode of vomiting secondary to coughing but denies any further episodes. States he was hospitalized in ICU on ventilator at [facility] last winter for pneumonia but does note he came to the hospital earlier in his illaz ss this time. He reports he did not take his AM medications prior to coming in today. While in the ED, his CXR was negative, Chest CTA negative for PE but did show bronchitis. CBC was without leukocytosis. Renal function stable but electrolytes with slightly decreased K of 3.1 & Mag of 1.6. His Procal was negative, TSH WNL, trop neg, BNP WNL. Blood cultures & Sputum cultures pending. He was given KCl, Mag, IV Zosyn, a Duoneb in ED. He was also hypoxic in high 80% and placed on 3L of oxygen w/ improvement of SOB. Code discussion did take place & he does confirm that he is a full code. Discharge Exam General: NAD, VS as above Resp: normal respiratory effort, diminished in bases, no wheezing CV: RRR, no murmur, Extremities: Moves all extremities, no edema Neuro: A&O x3, Discharge Plan Discharge Items Patient Disposition: Home - Self-Care Reason For Visit: rhinovirus Discharge Diagnosis: rhinovirus Condition on Discharge: Good Activity: As commented below Activity Comment: gradually increase as tolerated Weightbearing: Full weightbearing Non-emergency contact: Primary Care Provider Call non-emergency contact if: you have any medication questions, your symptoms worsen, your pain is not controlled and your temperature is above 101 Follow-up/Referrals: Srikanth Womack [Primary Care Provider] - (follow up within one week ) Diet: Carb Consistent or DM2 Addtl Attending Provider Instructions: Mr. Sofia You were hospitalized after feeling short of breath at home. You were found to have bronchitis from rhinovirus. Given your hx of extensive COVID, this has likely had a larger impact on you than it can for others. You were treated with supplemental oxygen and IV steroids and have done well. You will be continued on oral steroids daily and can continue to use your inhaler as needed. Continue to monitor your pulse oximeter at home. If you are staying below 88% at rest please seek medical care. No changes to your home medications. You have blood cultures pending at the time of discharge, they are negative at 48 hours but take 5 days to get final results. If they turn positive you will be notified, you can also check in with your PCP or the [facility] portal. However, given your symptoms I do not expect they will be positive. Activity: You can do normal everyday activities as your body allows. Take rest breaks if you feel tired. Do not overexert. Stop activity if you have pain, shortness of breath or feel dizzy. Follow-up appointments: Make an appointment with your primary care physician within one week of discharge. A copy of this summary will be sent to them. Every time you see your primary care physician, or any other doctor, bring your medication list, and a list of questions. CONTACT YOUR PRIMARY CARE PROVIDER if you experience any of the following: Shortness of breath or difficulty breathing Fevers or chills Feeling tired with normal activity or experiencing dizziness or fainting Difficulty following your treatment plan, or difficulty taking medications CALL 911 OR GO TO THE EMERGENCY DEPARTMENT if you experience any of the following: Severe abdominal pain or nausea/vomiting Severe chest pain, or chest pain that radiates (moves) to your jaw or arm Sudden, severe shortness of breath or difficulty breathing Thank you for allowing us to participate in your care. Pending Studies at Discharge: Yes Stand-Alone Forms: [facility], Smoking Cessation Medications and DC Order Prescriptions: New prednisone 20 mg tablet See Taper PO DAILY Qty: 16 0RF Taper: Taper, Blank 40 mg DAILY for 5 Days 20 mg DAILY for 4 Days 10 mg DAILY for 4 Days Continued metoprolol succinate 25 mg tablet extended release 24 hr 50 mg PO DAILY Qty: 180 3RF dapagliflozin propanediol [Farxiga] 10 mg tablet 10 mg PO DAILY Qty: 90 3RF torsemide 20 mg tablet 20 mg PO QID PRN (Reason: edema) Qty: 120 5RF Repatha SureClick 140 mg/mL pen injector 140 mg subcut .every 2 weeks Qty: 6 3RF rosuvastatin 40 mg tablet 40 mg PO QPM Qty: 90 3RF tadalafil 20 mg tablet 20 mg PO DAILY PRN (Reason: sexual activity) Qty: 30 3RF testosterone 12.5 mg/ 1.25 gram (1 %) gel in metered-dose pump 4 pump transdermal DAILY Qty: 150 0RF Mounjaro 12.5 mg/0.5 mL pen injector subcut tamsulosin 0.4 mg capsule 0.4 mg PO DAILY Qty: 90 3RF testosterone 20.25 mg/1.25 gram (1.62 %) gel in metered-dose pump 20.25 mg topical DAILY Qty: 75 0RF Rx Instructions: apply 1 pump amount over max area of ONE upper arm and shoulder albuterol sulfate 90 mcg/actuation HFA aerosol inhaler 2 puff inhalation Q6H PRN (Reason: Shortness Of Breath Or Wheezing) Qty: 8.5 11RF folic acid 1 mg tablet 1 mg PO DAILY multivitamin Tablet 1 tab PO DAILY pantoprazole 40 mg tablet,delayed release (DR/EC) 40 mg PO DAILY thiamine HCl (vitamin B1) 100 mg tablet 100 mg PO DAILY potassium chloride 20 mEq tablet extended release 20 meq PO BID Qty: 180 3RF sertraline 50 mg tablet 50 mg PO QPM Discharge Orders: Discharge Order (Routine); Ordered 09/12/25 Ordered By: Rossana Duque Admission Data Admit Date/Time: 09/10/25 10:42 Attending Provider: Kuldip Tohrnton Admit Provider: Linda Garcia Primary Care Provider: Srikanth Womack Other Providers: Linda Garcia Other Interventions: Discharge Summary Assessment (RN) Last Done: 09/12/25 13:18 Hospital Stay Data Consultations 09/10/25 10:21 ED Decision to Admit Stat Diagnostic Imagining Performed Chest CTA 09/10/25 08:48 CT angio chest PE protocol CT DOSE: 1024.93 mGy.cm HISTORY: dyspnea. TECHNIQUE: Multiple CTA images of the chest were obtained after the intravenous administration of 90 ml Optiray. Coronal and sagittal MIPS were obtained from the axial data set and were submitted for review. All measurements were obtained according to NASCET criteria. A dose lowering technique was utilized adhering to the principles of ALARA. COMPARISON STUDY: None. FINDINGS: There is bronchial wall thickening consistent with bronchitis. There is no pulmonary consolidation or pleural effusion. No pneumothorax. No evidence of interstitial lung disease. There is a calcified granuloma at the right mid lung. There is mild mediastinal and hilar adenopathy with largest lymph node in a right hilar node measuring 3 cm greatest dimension. No pericardial effusion. There are mild diffuse degenerative changes at the thoracic spine. IMPRESSION: 1. No pulmonary embolism or pneumonia. 2. Bronchial wall thickening suggesting bronchitis. 3. Mild mediastinal and hilar adenopathy. Likely differential diagnosis includes sarcoid and infectious/inflammatory. Cannot exclude other etiologies. At a minimum, recommend follow-up chest CT in 6 months to make sure this is not progressive. ACT 112: Positive. There are findings on this exam that require communication between the performing entity and the patient following Patient Test Result Information Act ([place] Act 112) guidelines. The above report was generated using voice recognition software. It may contain grammatical, syntax or spelling errors. Electronically signed by: Mukul Paige M.D. 09/10/2025 10:11 AM Chest X-Ray 09/10/25 08:48 XR chest 1V portable CLINICAL HISTORY: dyspnea COMPARISON STUDY: 01/24/2023 FINDINGS: Stable mild cardiomegaly without pulmonary vascular congestion. No consolidation or pleural effusion seen. No pneumothorax. IMPRESSION: No acute findings. ACT 112: Negative or not required by law. Electronically signed by: Mukul Paige M.D. 09/10/2025 9:03 AM Pending Results Patient Have Any Pending Studies at Discharge: Yes Discharge Instructions Given to Patient (Per Discharging Provider) Mr. Sofia You were hospitalized after feeling short of breath at home. You were found to have bronchitis from rhinovirus. Given your hx of extensive COVID, this has likely had a larger impact on you than it can for others. You were treated with supplemental oxygen and IV steroids and have done well. You will be continued on oral steroids daily and can continue to use your inhaler as needed. Continue to monitor your pulse oximeter at home. If you are staying below 88% at rest please seek medical care. No changes to your home medications. You have blood cultures pending at the time of discharge, they are negative at 48 hours but take 5 days to get final results. If they turn positive you will be notified, you can also check in with your PCP or the [facility] portal. However, given your symptoms I do not expect they will be positive. Activity: You can do normal everyday activities as your body allows. Take rest breaks if you feel tired. Do not overexert. Stop activity if you have pain, shortness of breath or feel dizzy. Follow-up appointments: Make an appointment with your primary care physician within one week of disc harge. A copy of this summary will be sent to them. Every time you see your primary care physician, or any other doctor, bring your medication list, and a list of questions. CONTACT YOUR PRIMARY CARE PROVIDER if you experience any of the following: Shortness of breath or difficulty breathing Fevers or chills Feeling tired with normal activity or experiencing dizziness or fainting Difficulty following your treatment plan, or difficulty taking medications CALL 911 OR GO TO THE EMERGENCY DEPARTMENT if you experience any of the foll owing: Severe abdominal pain or nausea/vomiting Severe chest pain, or chest pain that radiates (moves) to your jaw or arm Sudden, severe shortness of breath or difficulty breathing Thank you for allowing us to participate in your care. Total Time Total Time Spent Total Time Spent (In Minutes): Time spent day of discharge 35 minutes including direct patient care, medication reconciliation, documentation, review of labs and images, and coordination of care. Coding Level of Care Code 00757 INP/OBS DISCH >30 MIN Diagnoses Rhinovirus infection B34.8 Bronchitis J40 Nonrheumatic mitral valve regurgitation I34.0 Cardiac valve disease etiology: nonrheumatic Primary hypertension I10 Hypertension type: primary hypertension Familial hypercholesterolemia E78.01 Hyperlipidemia type: familial hypercholesterolemia"
[2025-09-12 13:18] VITALS: BP 122/65
[2025-09-12] MEDS: INFLUENZA VACC TS2025-26(6m+)/PF (IIV3) 0.5mL Syr IM ONE (13:22)
[2025-09-12] MEDS: PNEUMOCOCCAL VACCINE (PCV20) 20-VAL CONJ-DIP CRM/PF 0.5 ML SYR IM ONE (13:23)
== END 2025-09-12 14:14 | disposition home or self-care (01) | DRG 202 ==
LOC: SUATTDRO → ED 08:17 → EDINP 10:42 → SUATTDRO 10:42 → EDINP 18:09 → 2N 18:22
DX: I48.92 Unspecified atrial flutter; E29.1 Testicular hypofunction; Z79.890 Hormone replacement therapy; I34.0 Nonrheumatic mitral (valve) insufficiency; N40.0 Benign prostatic hyperplasia without lower urinary tract symptoms; E66.9 Obesity, unspecified; K21.9 Gastro-esophageal reflux disease without esophagitis; Z79.899 Other long term (current) drug therapy; E78.5 Hyperlipidemia, unspecified; Z68.42 Body mass index [BMI] 45.0-49.9, adult; I10 Essential (primary) hypertension; E87.6 Hypokalemia; Z86.16 Personal history of COVID-19; J20.6 Acute bronchitis due to rhinovirus